=== PATIENT | male | born 1975 | race Caucasian/White ===

== ENCOUNTER 2018-10-24 11:20 | Outpatient (CLI) | payer MEDICARE, SELFPAY ==
[2018-10-24 11:29] VITALS: BMI 32.3
[2018-10-24 12:05] VITALS: BP 167/102; PULSE 110; RESP 20; TEMP 36.9; O2SAT 96
[2018-10-24 12:27] LABS: Basophils % 0.7 % (0.1-2.0); Eosinophils # 0.2 K/mm3 (0.0-0.4); Eosinophils % 3.3 % (0.1-12.0); Hematocrit 40.4 % (42.0-52.0); Hemoglobin 12.7 g/dL (14.1-18.0); Mean Corpuscular HGB Conc 31.5 g/dL (31.8-35.4); Mean Corpuscular Hemoglobin 28.9 pg (27.0-31.2); Mean Corpuscular Volume 91.5 fl (80-94); Mean Platelet Volume 7.9 fl (7.4-10.4); Monocytes # 0.4 K/mm3 (0.1-1.0); Monocytes % 6.5 % (1.7-9.3); Neutrophils # 3.4 K/mm3 (1.8-7.8); Neutrophils % 56.5 % (37.0-80.0); Platelet Count 188 K/mm3 (142-424); Red Blood Count 4.42 M/mm3 (4.60-6.20); Red Cell Distribution Width 21.4 % (11.5-17.5)
[2018-10-24 12:35] LABS: Chol/HDL Ratio 2.6 (1-3.5); Cholesterol 171 mg/dL (140-200); Ethyl Alcohol 226 mg/dL (0-99); HDL Cholesterol 66 mg/dL (27-67); LDL Cholesterol 90 mg/dL (0-130); Triglycerides 73 mg/dL (30-200); VLDL Cholesterol 15 mg/dL (0-40)
[2018-10-24 12:39] LABS: Alanine Aminotransferase 98 U/L (12-78); Albumin/Globulin Ratio 1.1 (1.1-1.8); Alkaline Phosphatase 119 U/L (46-116); Anion Gap 18.1 mEq/L (5-15); Aspartate Amino Transferase 81 U/L (15-37); Bilirubin,Total 0.5 mg/dL (0.2-1.0); Blood Urea Nitrogen 6 mg/dL (7-18); Calcium 8.9 mg/dL (8.5-10.1); Carbon Dioxide 28 mmol/L (21.0-32.0); Chloride 102 mmol/L (98-107); Creatinine Clearance Estimated 164 mL/min (50-200); Creatinine,Serum 0.88 mg/dL (0.70-1.30); Estimated Glomerular Filt Rate 94 ml/min (>60); GFR (African American) 114 ML/MIN (>60); Globulin 3.7 gm/dl (1.3-3.2); Glucose 93 mg/dL (74-106); Potassium 3.1 mmoL/L (3.5-5.1); Sodium 145 mmol/L (136-145); Total Protein,Serum 7.7 gm/dL (6.4-8.2)
[2018-10-24 14:05] VITALS: BP 152/85; PULSE 85; RESP 18
[2018-10-24 14:36] LABS: Hemoglobin A1C 5.3 % (0.0-7.0)
[2018-10-26 18:27] LABS: Folate 11.9 ng/mL (>3.0); Vitamin B12 640 pg/mL (232-1245); Vitamin D 25 Hydroxy 22.5 ng/mL (30.0-100.0)
== END 2018-10-24 14:05 | disposition home or self-care (01) ==
PROVIDERS: Physician Assistant; PCP Family Medicine; Visit Provider Family Medicine
DX: E86.0 Dehydration (principal); Z79.899 Other long term (current) drug therapy; R41.0 Disorientation, unspecified; I42.6 Alcoholic cardiomyopathy
CPT/HCPCS: 80053; 80061; 82607; 82652; 82746; 83036; 85025; 96360; 96361

== ENCOUNTER → 2019-01-30 14:19 | Outpatient (CLI) | payer MEDICARE, SELFPAY ==
--- NOTE | 2019-01-30 14:25 | XR_ITS ---
XR chest 2V HISTORY: ITS.REASON: PLEURITIC CP ORDERING PHYSICIAN: RUSSEL Edwards PATIENT AGE: 43 years COMPARISON: None FINDINGS: The cardiomediastinal silhouette and pulmonary vascularity are within normal limits. The lungs are clear without infiltrates, suspicious nodules, or pleural effusions. No acute bony abnormalities. IMPRESSION: Negative chest, no acute finding
--- NOTE | 2019-01-30 14:28 | XR_ITS ---
XR abdomen min 2V HISTORY: ITS.REASON: RT FLANK PAIN, CONSTIPATION ORDERING PHYSICIAN: RUSSEL Edwards PATIENT AGE: 43 years COMPARISON: None FINDINGS: Nonspecific nonobstructive bowel gas pattern. There are gas-filled loops of small and large bowel. Surgical clips are present in the epigastric region on the left and in the right upper. No acute bony findings. IMPRESSION: Nonspecific bowel gas pattern with nondistended gas-filled loops of small and large bowel otherwise negative
== END ==
PROVIDERS: PCP Family Medicine; Visit Provider Physician Assistant
DX: R10.9 Unspecified abdominal pain (principal); K59.00 Constipation, unspecified; R07.81 Pleurodynia
CPT/HCPCS: 71046; 74019

== ENCOUNTER → 2019-03-18 15:51 | Outpatient (CLI) | payer MEDICARE, BC, SELFPAY ==
[2019-03-18 18:07] LABS: Anion Gap 11.8 mEq/L (5-15); Blood Urea Nitrogen 9 mg/dL (7-18); Calcium 9.1 mg/dL (8.5-10.1); Carbon Dioxide 31 mmol/L (21.0-32.0); Chloride 105 mmol/L (98-107); Creatinine,Serum 0.98 mg/dL (0.70-1.30); Estimated Glomerular Filt Rate 83 ml/min (>60); GFR (African American) 101 ML/MIN (>60); Glucose 80 mg/dL (74-106); Potassium 3.8 mmoL/L (3.5-5.1); Sodium 144 mmol/L (136-145)
== END ==
PROVIDERS: Visit Provider Physician Assistant
DX: R60.9 Edema, unspecified (principal)
CPT/HCPCS: 36415; 80048

== ENCOUNTER → 2019-05-30 11:56 | Outpatient (CLI) | payer MEDICARE, SELFPAY ==
[2019-05-30 12:31] LABS: Basophils # 0.1 K/mm3 (0-0.2); Basophils % 0.7 % (0.1-2.0); Eosinophils # 0.2 K/mm3 (0.0-0.4); Eosinophils % 2.6 % (0.1-12.0); Hematocrit 45.7 % (42.0-52.0); Hemoglobin 14.8 g/dL (14.1-18.0); Lymphocytes # 1.9 K/mm3 (0.7-4.5); Mean Corpuscular HGB Conc 32.3 g/dL (31.8-35.4); Mean Corpuscular Hemoglobin 29.2 pg (27.0-31.2); Mean Corpuscular Volume 90.4 fl (80-94); Mean Platelet Volume 8.4 fl (7.4-10.4); Monocytes # 0.6 K/mm3 (0.1-1.0); Neutrophils # 5.8 K/mm3 (1.8-7.8); Neutrophils % 67.7 % (37.0-80.0); Platelet Count 264 K/mm3 (142-424); Red Blood Count 5.05 M/mm3 (4.60-6.20); Red Cell Distribution Width 15.9 % (11.5-17.5); White Blood Count 8.6 K/mm3 (4.8-10.8)
[2019-05-30 13:23] LABS: Hemoglobin A1C 5.8 % (0.0-7.0)
[2019-05-30 17:47] LABS: Alanine Aminotransferase 28 U/L (12-78); Albumin Level 3.7 gm/dL (3.4-5.0); Albumin/Globulin Ratio 1.2 (1.1-1.8); Alkaline Phosphatase 103 U/L (46-116); Anion Gap 10.6 mEq/L (5-15); Aspartate Amino Transferase 18 U/L (15-37); Bilirubin,Total 0.8 mg/dL (0.2-1.0); Blood Urea Nitrogen 15 mg/dL (7-18); Calcium 9.1 mg/dL (8.5-10.1); Carbon Dioxide 34 mmol/L (21.0-32.0); Chloride 105 mmol/L (98-107); Creatinine,Serum 1.23 mg/dL (0.70-1.30); Estimated Glomerular Filt Rate 64 ml/min (>60); GFR (African American) 77 ML/MIN (>60); Globulin 3.1 gm/dl (1.3-3.2); Glucose 110 mg/dL (74-106); Iron 60 ug/dl (28-170); Magnesium 2.2 mg/dL (1.4-2.2); Potassium 4.6 mmoL/L (3.5-5.1); Sodium 145 mmol/L (136-145); Thyroid Stimulating Hormone 3.22 uIU/ml (0.358-3.740); Total Protein,Serum 6.8 gm/dL (6.4-8.2)
[2019-06-02 09:27] LABS: Folate 6.5 ng/mL (>3.0); Prolactin 12.6 ng/mL (4.0-15.2); Vitamin B12 591 pg/mL (232-1245); Vitamin D 25 Hydroxy 24.6 ng/mL (30.0-100.0)
== END ==
PROVIDERS: Visit Provider Nurse Practitioner Family
DX: F10.120 Alcohol abuse with intoxication, uncomplicated (principal); E03.9 Hypothyroidism, unspecified; E55.9 Vitamin D deficiency, unspecified; D50.8 Other iron deficiency anemias; R60.9 Edema, unspecified; Z98.84 Bariatric surgery status; Z79.899 Other long term (current) drug therapy
CPT/HCPCS: 36415; 80053; 82607; 82652; 82746; 83036; 83540; 83735; 84146; 84443; 85025

== ENCOUNTER 2024-02-26 14:07 | Outpatient (CLI) | payer MEDICARE, SELFPAY ==
[2024-02-26 16:08] LABS: Thyroid Stimulating Hormone 5.05 uIU/mL (0.465-4.68)
[2024-02-26 16:12] LABS: Hemoglobin A1C 5.3 % (4.0-6.0)
[2024-02-26 16:44] LABS: Vitamin B12 943 pg/mL (239-931)
[2024-02-26 17:17] LABS: Folate > 20.00 ng/mL
== END 2024-02-26 23:59 | disposition home or self-care (01) ==
LOC: LAB 14:08
PROVIDERS: PCP Nurse Practitioner; Visit Provider Specialist
DX: R53.1 Weakness (principal); Z86.73 Personal history of transient ischemic attack (TIA), and cerebral infarction without residual deficits; E83.10 Disorder of iron metabolism, unspecified; Z87.898 Personal history of other specified conditions; R73.9 Hyperglycemia, unspecified; R53.83 Other fatigue; Z98.84 Bariatric surgery status; I47.19 Other supraventricular tachycardia
CPT/HCPCS: 36415; 82607; 82728; 82746; 83036; 84443; 93270; 93272

== ENCOUNTER 2024-03-11 08:05 | Outpatient (CLI) | payer MEDICARE, SELFPAY ==
--- NOTE | 2024-03-11 08:06 | MR_ITS ---
FINAL REPORT CLINICAL HISTORY: Left sided weakness FINDINGS: Multiplanar MR imaging of the brain was performed without and with contrast. Motion artifact is identified on many of the images. There is no evidence of intracranial hemorrhage or mass. No abnormal extra-axial fluid collection is seen. The ventricular size is within normal limits. There is no evidence of shift of the midline structures. The posterior fossa and brainstem have an unremarkable appearance. No area of abnormal restricted diffusion is identified. No abnormal contrast enhancement is seen. Normal major vessel vascular flow voids are noted. There is a retention cyst or polyp in both maxillary sinuses. IMPRESSION: No acute intracranial abnormality identified. Reviewed, Interpreted and Dictated by Luis Eduardo Qureshi III, MD Transcribed by Glenna Alegria Authenticated and [facility]
[2024-03-11] MEDS: GADOTERIDOL INJ 20ML SYRINGE 20 ML IV (08:52)
[2024-03-11] MEDS: SODIUM CHLORIDE 0.9% 10ML SYR (RAD ONLY) 10 ML IV (08:52)
== END 2024-03-11 23:59 | disposition home or self-care (01) ==
LOC: RAD 08:06
PROVIDERS: Visit Provider Specialist
DX: R53.1 Weakness (principal); R47.81 Slurred speech
CPT/HCPCS: 70553; A9576

== ENCOUNTER → 2024-04-06 07:34 | Outpatient (CLI) | payer MEDICARE, SELFPAY | LOC: SL 07:35 | PROVIDERS: Visit Provider Specialist | DX: G47.33 Obstructive sleep apnea (adult) (pediatric) (principal) | CPT/HCPCS: G0399 ==

== ENCOUNTER 2024-06-16 11:16 | Outpatient (CLI) | payer MEDICARE, SELFPAY ==
[2024-06-16 11:52] LABS: Basophils # 0.1 K/mm3 (0-0.2); Basophils % 0.8 % (0.1-2.0); Eosinophils # 0.2 K/mm3 (0.0-0.4); Hematocrit 37.2 % (42.0-52.0); Hemoglobin 12.6 g/dL (14.1-18.0); Lymphocytes # 1.5 K/mm3 (0.7-4.5); Lymphocytes % 20.2 % (10-50); Mean Corpuscular HGB Conc 33.9 g/dL (31.8-35.4); Mean Corpuscular Hemoglobin 30.3 pg (27.0-31.2); Mean Corpuscular Volume 89.5 fl (80-94); Mean Platelet Volume 9.3 fl (7.4-10.4); Monocytes # 0.5 K/mm3 (0.1-1.0); Monocytes % 6.6 % (1.7-9.3); Neutrophils # 5.3 K/mm3 (1.8-7.8); Neutrophils % 70.3 % (37.0-80.0); Platelet Count 171 K/mm3 (142-424); Red Blood Count 4.16 M/mm3 (4.60-6.20); Red Cell Distribution Width 16.4 % (11.5-17.5); White Blood Count 7.5 K/mm3 (4.8-10.8)
[2024-06-16 12:00] LABS: Activated Partial Thrombo Time 36.7 seconds (22.8-30.6); INR 1.02 (0.9-1.1); Prothrombin Time 11.4 seconds (10.1-12.5)
[2024-06-16 12:05] LABS: Creatinine,Urine Random 80 mg/dL (Not Estab.)
[2024-06-16 12:09] LABS: Microalbumin < 6.000 mg/L (0-16.7)
[2024-06-16 12:12] LABS: Alanine Aminotransferase 29 U/L (12-78); Albumin Level 3.8 g/dl (3.5-5.0); Alkaline Phosphatase 82 U/L (38-126); Anion Gap 8.9 mEq/L (5-15); Aspartate Amino Transferase 38 U/L (17-59); Bilirubin,Direct 0.1 mg/dl (0.0-0.4); Bilirubin,Indirect 0.9 mg/dL (0.0-0.9); Blood Urea Nitrogen 8 mg/dl (9-20); Calcium 8.7 mg/dl (8.4-10.2); Carbon Dioxide 29 mmol/L (22.0-30.0); Chloride 107 mmol/L (98-107); Chol/HDL Ratio 2.6 (1-3.5); Cholesterol 84 mg/dl (140-200); Estimated Glomerular Filt Rate 79 ml/min (>60); GFR (African American) 96 ML/MIN (>60); Glucose 88 mg/dl (74-100); HDL Cholesterol 32 mg/dl (40-60); Potassium 3.9 mmoL/L (3.5-5.1); Sodium 141 mmol/L (136-145); Total Protein,Serum 5.8 g/dl (6.3-8.2); Triglycerides 68 mg/dl (30-150); VLDL Cholesterol 14 mg/dL (0-40)
[2024-06-16 12:20] LABS: NT Pro Brain Natriuretic Pep. 124 pg/mL (0-125)
[2024-06-16 12:22] LABS: Direct LDL Cholesterol 45.26 mg/dL (100-129)
[2024-06-16 12:28] LABS: Free T4 (Free Thyroxine) 0.93 ng/dl (0.78-2.19)
[2024-06-16 12:42] LABS: Thyroid Stimulating Hormone 3.67 uIU/mL (0.465-4.68)
== END 2024-06-16 23:59 | disposition home or self-care (01) ==
LOC: LAB 11:17
PROVIDERS: PCP Nurse Practitioner Family; Visit Provider Internal Medicine
DX: I25.10 Atherosclerotic heart disease of native coronary artery without angina pectoris (principal); I95.1 Orthostatic hypotension; I87.2 Venous insufficiency (chronic) (peripheral); R60.9 Edema, unspecified; I49.9 Cardiac arrhythmia, unspecified; G25.81 Restless legs syndrome; Z87.898 Personal history of other specified conditions; R00.1 Bradycardia, unspecified; R53.1 Weakness; I50.9 Heart failure, unspecified
CPT/HCPCS: 36415; 80048; 80061; 80076; 82043; 82570; 83880; 84439; 84443; 85025; 85610; 85730

== ENCOUNTER 2024-06-26 07:16 | Outpatient (CLI) | payer MEDICARE, SELFPAY ==
--- NOTE | 2024-06-26 07:19 | CA_ITS ---
FINAL REPORT CLINICAL HISTORY: EDEMA,HTN,HLD,PT ON ASA COMPARISON: None FINDINGS: DUPLEX VENOUS SONOGRAPHY OF THE BILATERAL LOWER EXTREMITIES Multiple transverse and longitudinal scans were performed of the femoropopliteal deep venous systems, with augmentation and compression maneuvers. Normal phasic flow was noted in the visualized deep venous systems. No intraluminal increased echogenicity is noted to suggest thrombus. There is normal compression and augmentation of the venous structures. No abnormal venous collaterals are seen. IMPRESSION: No evidence of deep venous thrombosis of the bilateral lower extremities. Reviewed, Interpreted and Dictated by Chrissie Estrada MD Transcribed by Milena Ramirez Authenticated and [facility]
--- NOTE | 2024-06-26 07:19 | CA_ITS ---
APPROVED REPORT EXAM: Comprehensive 2D, Doppler, and color-flow Echocardiogram Management Professionals: Marcie Quijano RVT Ht: 6 ft 0 in Wt: 223lbs BSA: 2.23 BP: 131/84 mmHg Indications: FATIGUE,EDEMA,CAD,JUDY,CHF,DM,HTN,HLD,SMOKER,BRADYCARDIA 2D Dimensions LA Volume 58.00 mL LA Volume Index 26.01 mL/m2 (M/F) 16-34 M-Mode Dimensions RVDd 2.37 cm (0.9-2.6) LA Diam 3.65 cm (1.9-4.0) LVDd 4.58 cm (3.5-5.7) LVDs 2.93 cm (3.5-5.7) IVSd 1.00 cm (0.6-1.1) PWd 0.72 cm (0.6-1.1) EF (Teich) 65.70% FS 36.00% EDV (Teich) 96.30 mL TAPSE 3.15 (<1.7) ESV (Teich) 33.00 mL LV Diastology E Decel Time 193 (160-240 msec) E/A Ratio 1.7 Aortic Valve GEORGE Index 1.57 cm2/m2 AoV Peak Martín. 129.0 (50-130 cm/s) AO Peak GR. 6.70 mmHg AO Mean GR. 3.10 (<5 mmHg) AO VTI 28.3 (18-25 cm) GEORGE (VTI) 3.60 (2.5-4.5 cm2) Mitral Valve MV E Max Martín. 106.0 (40-130 cm/s) MV A Velocity 64.0 (40-130 cm/s) E/A Ratio 1.66 MV PHT 57.0 ms Pulmonary Valve PV Peak Velocity 80.0 (50-150 cm/s) Tricuspid Valve TR P. Velocity 290.00 cm/s RAP Estimate 10.00 mmHg RVSP 43.60 mmHg Left Ventricle The left ventricle is normal size. The left ventricular systolic function is normal. The left ventricular ejection fraction is within the normal range. There is normal left ventricular wall thickness. There is normal LV segmental wall motion. The left ventricular diastolic function is normal. LVEF is 55%. Right Ventricle The right ventricle is mildly dilated. The right ventricular systolic function is normal. Atria The left atrium size is normal. The right atrium size is normal. There is no Doppler evidence of interatrial shunt. Aortic Valve The aortic valve opens well. There is no aortic valvular stenosis. No aortic regurgitation is present. Mitral Valve The mitral valve is normal in structure. No evidence of mitral valve stenosis. There is no mitral valve regurgitation noted. Tricuspid Valve Tricuspid valve is grossly normal in structure and function. Mild tricuspid regurgitation. RVSP is 25-30 mmHg. Pulmonic Valve The pulmonary valve is normal in structure. Trace pulmonic regurgitation. Great Vessels The aortic root is normal in size. The ascending aorta is normal in size. IVC is normal in size and collapses >50% with inspiration. Pericardium There is no pericardial effusion. Other Information Study Quality: Fair Conclusion Normal biventricular systolic function. Mild RV dilation. Mild TR. Electronically signed by : Cydney Teresa MD 07/05/2024 23:16:07
--- NOTE | 2024-06-26 07:21 | US_ITS ---
FINAL REPORT TECHNIQUE: Sonographic images of the right upper quadrant were obtained. CLINICAL HISTORY: alcoholism COMPARISON: None FINDINGS: PANCREAS: Obscured. LIVER: Homogeneous. No focal hepatic lesion. No intrahepatic biliary ductal dilatation. GALLBLADDER: Absent. COMMON DUCT: 6 mm. Normal for age. RIGHT KIDNEY: The right kidney measures 12.1 cm. There is no hydronephrosis, mass, or stone. FREE FLUID: None. IMPRESSION: Cholecystectomy Reviewed, Interpreted and Dictated by Chrissie Estrada MD Transcribed by Esther Sung Authenticated and [facility]
== END 2024-06-26 23:59 | disposition home or self-care (01) ==
LOC: RAD 07:17
PROVIDERS: PCP Nurse Practitioner Family; Visit Provider Internal Medicine
DX: I25.10 Atherosclerotic heart disease of native coronary artery without angina pectoris (principal); I87.2 Venous insufficiency (chronic) (peripheral); K95.89 Other complications of other bariatric procedure; D50.8 Other iron deficiency anemias; R60.9 Edema, unspecified; I49.9 Cardiac arrhythmia, unspecified; Z87.898 Personal history of other specified conditions; R00.1 Bradycardia, unspecified; F10.21 Alcohol dependence, in remission
CPT/HCPCS: 76705; 93306; 93970

== ENCOUNTER 2024-07-16 13:39 | Outpatient (CLI) | payer MEDICARE, SELFPAY ==
[2024-07-16 14:26] LABS: Basophils % 0.5 % (0.1-2.0); Eosinophils % 1.1 % (0.1-12.0); Hematocrit 39.8 % (42.0-52.0); Hemoglobin 13.5 g/dL (14.1-18.0); Lymphocytes # 2.1 K/mm3 (0.7-4.5); Lymphocytes % 20.9 % (10-50); Mean Corpuscular HGB Conc 33.9 g/dL (31.8-35.4); Mean Corpuscular Hemoglobin 29.7 pg (27.0-31.2); Mean Corpuscular Volume 87.5 fl (80-94); Mean Platelet Volume 11.9 fl (7.4-10.4); Monocytes % 6.4 % (1.7-9.3); Neutrophils # 7.1 K/mm3 (1.8-7.8); Neutrophils % 70.9 % (37.0-80.0); Platelet Count 233 K/mm3 (142-424); Red Blood Count 4.55 M/mm3 (4.60-6.20); Red Cell Distribution Width 15.9 % (11.5-17.5)
[2024-07-16 14:27] LABS: Basophils # 0.1 K/mm3 (0-0.2); Eosinophils # 0.1 K/mm3 (0.0-0.4); Monocytes # 0.6 K/mm3 (0.1-1.0)
[2024-07-16 15:11] LABS: Iron 70 ug/dL (49-181)
[2024-07-16 15:19] LABS: Total Iron Binding Capacity 441 ug/dL (261-462)
[2024-07-16 15:46] LABS: Ferritin 7.22 ng/ml (17.9-464)
== END 2024-07-16 23:59 | disposition home or self-care (01) ==
LOC: LAB 13:40
PROVIDERS: PCP Nurse Practitioner Family; Visit Provider Internal Medicine Medical Oncology
DX: K95.89 Other complications of other bariatric procedure (principal); D50.8 Other iron deficiency anemias
CPT/HCPCS: 36415; 82728; 83540; 83550; 85025

== ENCOUNTER 2024-08-14 09:33 | Outpatient (CLI) | payer MEDICARE, SELFPAY ==
[2024-08-14 09:54] LABS: Basophils % 0.3 % (0.1-2.0); Eosinophils # 0.1 K/mm3 (0.0-0.4); Eosinophils % 0.8 % (0.1-12.0); Hematocrit 43.3 % (42.0-52.0); Hemoglobin 14.7 g/dL (14.1-18.0); Lymphocytes % 14.5 % (10-50); Mean Corpuscular HGB Conc 33.9 g/dL (31.8-35.4); Mean Corpuscular Hemoglobin 29.2 pg (27.0-31.2); Mean Corpuscular Volume 85.9 fl (80-94); Mean Platelet Volume 10.6 fl (7.4-10.4); Monocytes # 0.9 K/mm3 (0.1-1.0); Monocytes % 6.6 % (1.7-9.3); Neutrophils # 10.5 K/mm3 (1.8-7.8); Neutrophils % 77.6 % (37.0-80.0); Platelet Count 229 K/mm3 (142-424); Red Blood Count 5.04 M/mm3 (4.60-6.20); Red Cell Distribution Width 15.9 % (11.5-17.5); White Blood Count 13.5 K/mm3 (4.8-10.8)
[2024-08-14 10:15] LABS: Chloride 96 mmol/L (98-107)
[2024-08-14 10:16] LABS: Potassium 3.5 mmoL/L (3.5-5.1); Sodium 136 mmol/L (136-145)
[2024-08-14 10:17] LABS: Iron 70 ug/dL (49-181)
[2024-08-14 10:18] LABS: Anion Gap 11.5 mEq/L (5-15); Bilirubin,Unconjugated 1.6 mg/dL (0.0-1.1); Blood Urea Nitrogen 10 mg/dl (9-20); Carbon Dioxide 32 mmol/L (22.0-30.0); Estimated Glomerular Filt Rate 54 ml/min (>60); GFR (African American) 65 ML/MIN (>60); Total Protein,Serum 7.4 g/dl (6.3-8.2)
[2024-08-14 10:19] LABS: Alanine Aminotransferase 34 U/L (12-78); Alkaline Phosphatase 101 U/L (38-126); Aspartate Amino Transferase 55 U/L (17-59); Bilirubin,Indirect 1.5 mg/dL (0.0-0.9); Bilirubin,Total 1.5 mg/dl (0.2-1.3); Calcium 10.1 mg/dl (8.4-10.2); Chol/HDL Ratio 3.2 (1-3.5); Cholesterol 115 mg/dl (140-200); Glucose 91 mg/dl (74-100); HDL Cholesterol 36 mg/dl (40-60); Triglycerides 95 mg/dl (30-150); VLDL Cholesterol 19 mg/dL (0-40)
[2024-08-14 10:27] LABS: Total Iron Binding Capacity 468 ug/dL (261-462)
[2024-08-14 10:30] LABS: Direct LDL Cholesterol 64.86 mg/dL (100-129)
[2024-08-14 10:49] LABS: Thyroid Stimulating Hormone 4.46 uIU/mL (0.465-4.68)
[2024-08-14 10:53] LABS: Ferritin 10.2 ng/ml (17.9-464)
== END 2024-08-14 23:59 | disposition home or self-care (01) ==
PROVIDERS: Internal Medicine Medical Oncology; PCP Nurse Practitioner Family; Visit Provider Internal Medicine
DX: K95.89 Other complications of other bariatric procedure (principal); D50.8 Other iron deficiency anemias; D64.9 Anemia, unspecified; I50.30 Unspecified diastolic (congestive) heart failure; I25.10 Atherosclerotic heart disease of native coronary artery without angina pectoris; I87.2 Venous insufficiency (chronic) (peripheral); R60.9 Edema, unspecified; F10.21 Alcohol dependence, in remission; G25.81 Restless legs syndrome; Z87.898 Personal history of other specified conditions; Z72.0 Tobacco use
CPT/HCPCS: 36415; 80048; 80061; 80076; 82728; 83540; 83550; 83735; 84439; 84443; 85025

== ENCOUNTER 2024-08-17 08:52 | Outpatient (CLI) | payer MEDICARE, SELFPAY ==
[2024-08-17] MEDS: SODIUM CHLORIDE 0.9% 50ML BAG 50 ML IV (09:10)
[2024-08-17] MEDS: ferumoxytoL 510 MG in 0.9 % SODIUM CHLORIDE 50 ML 268 MG IV (09:10)
[2024-08-17 09:15] VITALS: BP 98/46; PULSE 86; RESP 18; TEMP 36.7; O2SAT 98
[2024-08-17 09:30] VITALS: BP 100/51; PULSE 81
== END 2024-08-17 09:40 | disposition home or self-care (01) ==
LOC: INF 08:53
PROVIDERS: PCP Nurse Practitioner Family; Visit Provider Internal Medicine
DX: D50.8 Other iron deficiency anemias (principal)
CPT/HCPCS: 96374; Q0138

== ENCOUNTER 2024-08-21 08:22 | Outpatient (CLI) | payer MEDICARE, SELFPAY ==
[2024-08-21] MEDS: ferumoxytoL 510 MG in 0.9 % SODIUM CHLORIDE 50 ML 268 MG IV (08:36)
[2024-08-21] MEDS: SODIUM CHLORIDE 0.9% 10ML FLUSH SYRINGE 10 ML IV (08:37)
[2024-08-21] MEDS: SODIUM CHLORIDE 0.9% 50ML BAG 50 ML IV (08:37)
[2024-08-21 08:45] VITALS: BP 117/72; PULSE 67; RESP 18; TEMP 36.5; O2SAT 99
[2024-08-21 09:00] VITALS: BP 109/61; PULSE 62; RESP 17
== END 2024-08-21 09:10 | disposition home or self-care (01) ==
LOC: INF 08:23
PROVIDERS: PCP Nurse Practitioner Family; Visit Provider Internal Medicine
DX: D50.9 Iron deficiency anemia, unspecified (principal)
CPT/HCPCS: 96374; Q0138

== ENCOUNTER 2024-08-25 08:22 | Outpatient (CLI) | payer MEDICARE, SELFPAY ==
[2024-08-25 08:37] VITALS: BP 123/67; PULSE 68; RESP 16; TEMP 36.5; O2SAT 97
[2024-08-25] MEDS: SODIUM CHLORIDE 0.9% 10ML FLUSH SYRINGE 10 ML IV (08:37)
[2024-08-25] MEDS: ferumoxytoL 510 MG in 0.9 % SODIUM CHLORIDE 50 ML 268 MG IV (08:37)
[2024-08-25] MEDS: SODIUM CHLORIDE 0.9% 50ML BAG 50 ML IV (08:37)
[2024-08-25 09:05] VITALS: BP 116/77; PULSE 65; RESP 16; TEMP 36.5; O2SAT 98
== END 2024-08-25 09:10 | disposition home or self-care (01) ==
LOC: INF 08:23
PROVIDERS: PCP Nurse Practitioner Family; Visit Provider Internal Medicine
DX: D50.9 Iron deficiency anemia, unspecified (principal)
CPT/HCPCS: 96365; Q0138

== ENCOUNTER 2024-08-26 08:16 | Outpatient (CLI) | payer MEDICARE, SELFPAY ==
[2024-08-26] MEDS: ferumoxytoL 510 MG in 0.9 % SODIUM CHLORIDE 50 ML 268 MG IV (08:34)
[2024-08-26] MEDS: SODIUM CHLORIDE 0.9% 50ML BAG 50 ML IV (08:34)
[2024-08-26 08:45] VITALS: BP 106/62; PULSE 78; RESP 18; TEMP 36.7; O2SAT 98
[2024-08-26 09:10] VITALS: BP 97/48; PULSE 82
== END 2024-08-26 09:10 | disposition home or self-care (01) ==
LOC: INF 08:17
PROVIDERS: PCP Nurse Practitioner Family; Visit Provider Internal Medicine
DX: D50.9 Iron deficiency anemia, unspecified (principal)
CPT/HCPCS: 96365; 96374; Q0138

== ENCOUNTER 2024-09-03 22:05 | Emergency (ER) | payer MEDICARE, SELFPAY ==
[2024-09-03 22:18] VITALS: BP 113/79; PULSE 96; RESP 20; TEMP 36.9; O2SAT 98; BMI 29.8
[2024-09-03 22:33] LABS: Basophils # 0.1 K/mm3 (0-0.2); Basophils % 0.5 % (0.1-2.0); Eosinophils # 0.1 K/mm3 (0.0-0.4); Eosinophils % 1.2 % (0.1-12.0); Hemoglobin 14.9 g/dL (14.1-18.0); Lymphocytes # 2.6 K/mm3 (0.7-4.5); Lymphocytes % 26.7 % (10-50); Mean Corpuscular HGB Conc 33.9 g/dL (31.8-35.4); Mean Corpuscular Hemoglobin 30.7 pg (27.0-31.2); Mean Corpuscular Volume 90.5 fl (80-94); Mean Platelet Volume 10.5 fl (7.4-10.4); Monocytes # 0.6 K/mm3 (0.1-1.0); Monocytes % 6.5 % (1.7-9.3); Neutrophils # 6.3 K/mm3 (1.8-7.8); Neutrophils % 64.8 % (37.0-80.0); Platelet Count 202 K/mm3 (142-424); Red Blood Count 4.86 M/mm3 (4.60-6.20); Red Cell Distribution Width 18.6 % (11.5-17.5); White Blood Count 9.7 K/mm3 (4.8-10.8)
[2024-09-03 22:40] LABS: Albumin Level 4.5 g/dl (3.5-5.0); Chloride 97 mmol/L (98-107); Potassium 3.4 mmoL/L (3.5-5.1); Sodium 139 mmol/L (136-145)
[2024-09-03 22:42] LABS: Blood Urea Nitrogen 11 mg/dl (9-20); Creatinine Clearance Estimated 81 mL/min (50-200); Estimated Glomerular Filt Rate 64 ml/min (>60); GFR (African American) 78 ML/MIN (>60)
[2024-09-03 22:43] LABS: Alanine Aminotransferase 36 U/L (12-78); Alkaline Phosphatase 87 U/L (38-126); Anion Gap 9.4 mEq/L (5-15); Aspartate Amino Transferase 53 U/L (17-59); Bilirubin,Total 0.5 mg/dl (0.2-1.3); Calcium 9.1 mg/dl (8.4-10.2); Carbon Dioxide 36 mmol/L (22.0-30.0); Globulin 2.3 g/dL (1.3-3.2); Glucose 90 mg/dl (74-100); Total Protein,Serum 6.8 g/dl (6.3-8.2)
[2024-09-03 22:44] LABS: Lactic Acid 1.3 mmol/L (0.7-2.1)
[2024-09-03] MEDS: LACTATED RINGERS 1000ML 500 ML 999 ML IV (22:52)
[2024-09-03 23:11] LABS: C-Reactive Protein 0.9 mg/L (0-4)
[2024-09-03 23:19] LABS: Erythrocyte Sedimentation Rate 2 mm/hr (0-15)
[2024-09-03 23:25] LABS: Procalcitonin 0.054 ng/mL (0.0-2.0)
--- NOTE | 2024-09-03 23:51 | ED_ITS ---
Discharge Plan Disposition Patient Disposition: Home, Self-Care Condition: Good Prescriptions Prescriptions: New acyclovir 800 mg tablet 800 mg PO Q4H 5 Days Qty: 30 0RF Rx Instructions: while awake; give 5 doses in 24 hours No Action rosuvastatin 10 mg tablet 10 mg PO DAILY Qty: 90 3RF (DME) OneTouch Ultra Test Strip See Rx Instructions .ROUTE .MEDSUPPLY Qty: 10 Patient Comments: USE 1 STRIP TO CHECK GLUCOSE THREE TIMES DAILY Rx Instructions: As directed (DME) Dexcom G6 Sensor Device See Rx Instructions .ROUTE .MEDSUPPLY Qty: 1 Rx Instructions: As directed (DME) Dexcom G6 Weaving Machine Operator Misc See Rx Instructions .ROUTE .MEDSUPPLY Qty: 1 Patient Comments: USE DIRECTED Rx Instructions: As directed midodrine 5 mg tablet 5 mg PO TID Qty: 90 1RF Rx Instructions: do not give last dose of day after 6PM or within 4 hrs of bedtime (DME) Dexcom G6 Transmitter Device See Rx Instructions .ROUTE .MEDSUPPLY Qty: 1 Patient Comments: USE DIRECTED Rx Instructions: As directed Linzess 72 mcg capsule 72 mcg PO DAILY dapagliflozin propanediol [Farxiga] 10 mg tablet 10 mg PO DAILY Qty: 30 2RF spironolactone 25 mg tablet 12.5 mg PO DAILY Qty: 30 2RF guanfacine 1 mg tablet extended release 24 hr 1 mg PO DAILY Patient Comments: TAKE 1 TABLET BY MOUTH ONCE DAILY gabapentin 400 mg capsule 400 mg PO DAILY albuterol sulfate 90 mcg/actuation HFA aerosol inhaler 2 puff inhalation Q4H PRN (Reason: Dyspnea) Patient Comments: INHALE 2 PUFFS BY MOUTH EVERY 4 HOURS NEEDED lamotrigine 200 mg tablet 200 mg PO DAILY Patient Comments: TAKE 1 TABLET BY MOUTH ONCE DAILY folic acid 400 mcg tablet 400 mcg PO DAILY Patient Comments: TAKE 1 TABLET BY MOUTH ONCE DAILY venlafaxine 37.5 mg capsule,extended release 24hr 37.5 mg PO DAILY Patient Comments: TAKE 1 CAPSULE BY MOUTH ONCE DAILY WITH FOOD omeprazole 20 mg capsule,delayed release(DR/EC) 20 mg PO BID Patient Comments: TAKE 1 CAPSULE BY MOUTH TWICE DAILY pramipexole 0.5 mg tablet 0.5 mg PO HS Patient Comments: TAKE 1 TABLET BY MOUTH ONCE DAILY AT BEDTIME trazodone 100 mg tablet 100 mg PO DAILY Patient Comments: TAKE 1 TABLET BY MOUTH ONCE DAILY potassium chloride 10 mEq tablet extended release 10 meq PO DAILY Patient Comments: TAKE 1 TABLET BY MOUTH ONCE DAILY WITH FOOD methylphenidate HCl [Concerta] 36 mg tablet extended release 24hr 36 mg PO DAILY All Day Allergy (cetirizine) 10 mg capsule 10 mg PO DAILY PRN (Reason: allergies ) aspirin 81 mg capsule 81 mg PO DAILY tamsulosin 0.4 mg capsule 0.4 mg PO QHS Patient Comments: TAKE 1 CAPSULE BY MOUTH ONCE DAILY 30 MINUTES FOLLOWING THE SAME MEAL EACH DAY Vraylar 3 mg capsule 4.5 mg PO DAILY Austedo XR 24 mg tablet extended release 24 hr PO bumetanide 1 mg tablet 2 mg PO DAILY Qty: 60 5RF Referrals Follow up/Referrals: Funmilayo Ayala APRN [Primary Care Provider] - See instructions Activity Restrictions/Add. Instructions Additional Instructions/Restrictions: You were evaluated in the emergency department today. At this time, your labs are reassuring against significant bacterial infection. It is possible this could all be related to shingles, so I recommend picking up your prescription for acyclovir and is taking as prescribed. Please also take the antibiotic prescribed by your primary care provider just in case. Take Tylenol and ibuprofen every 4-6 hours as needed for pain. Return to the emergency department right away for new or worsening symptoms. Clinical Impressions Clinical Impression: Shingles rash Stand Alone Forms Stand Alone Forms: Work/School Release Instructions Patient Instructions: DI for Cellulitis -- Adult, DI for Shingles Print Language Print Language: Cameroonian Discharge ED Provider: Funmilayo Orozco General Adult HPI General Chief complaint: Skin/Abscess/Foreign Body Stated complaint: red streak from dermatitis, Time Seen by Provider: 09/03/24 22:43 Mode of Arrival: Ambulatory Source of Information: Patient Limitations: No Limitations Description of Symptoms (Recalled from ER Triage Doc. by RN): Pt states he has dermatitis on right arm but noticed red streak up arm today History of Present Illness HPI narrative: This patient is a 49-year-old male with a history of JUDY, COPD, CHF, venous insufficiency, CAD, prior bariatric surgery presenting to the emergency department for evaluation with concern for painful lesions to his right hand and streaking up his right arm. Patient notes that he has had the rash on his hands but just noticed the streaking on his arm today. He notes that he had dermatitis of his hand in the past, but never had the arm issue. He denies any fevers, chills, chest pain, shortness of breath, abdominal pain, nausea, vomiting, changes in bowel movements, or other concerns. Related Data Home Medications ?Medication ?Instructions ?Recorded ?Confirmed albuterol sulfate 90 mcg/actuation 2 puff inhalation Q4H PRN Dyspnea 02/26/24 08/11/24 aerosol inhaler aspirin 81 mg capsule 81 mg PO DAILY 02/26/24 08/11/24 cetirizine 10 mg capsule (All Day 10 mg PO DAILY PRN allergies 02/26/24 08/11/24 Allergy (cetirizine)) folic acid 400 mcg tablet 400 mcg PO DAILY 02/26/24 08/11/24 gabapentin 400 mg capsule 400 mg PO DAILY 02/26/24 08/11/24 guanfacine 1 mg tablet,extended 1 mg PO DAILY 02/26/24 08/11/24 release 24 hr lamotrigine 200 mg tablet 200 mg PO DAILY 02/26/24 08/11/24 methylphenidate HCl 36 mg 36 mg PO DAILY 02/26/24 08/11/24 tablet,extended release 24 hr (Concerta) omeprazole 20 mg capsule,delayed 20 mg PO BID 02/26/24 08/11/24 release potassium chloride 10 mEq 10 meq PO DAILY 02/26/24 08/11/24 tablet,extended release pramipexole 0.5 mg tablet 0.5 mg PO HS 02/26/24 08/11/24 tamsulosin 0.4 mg capsule 0.4 mg PO QHS 02/26/24 08/11/24 trazodone 100 mg tablet 100 mg PO DAILY 02/26/24 08/11/24 venlafaxine 37.5 mg 37.5 mg PO DAILY 02/26/24 08/25/24 capsule,extended release 24 hr cariprazine 3 mg capsule (Vraylar) 4.5 mg PO DAILY 04/20/24 08/11/24 blood sugar diagnostic (OneTouch #10 ea 06/16/24 08/11/24 Ultra Test strips) blood-glucose meter,continuous #1 ea 06/16/24 08/11/24 (CBA PHARMA G6 Weaving Machine Operator) blood-glucose sensor (IEVcom G6 #1 ea 06/16/24 08/11/24 Sensor device) deutetrabenazine 24 mg mg PO 07/16/24 08/11/24 tablet,extended release 24 hr (Austedo XR) blood-glucose transmitter (Dexcom #1 ea 08/11/24 08/11/24 G6 Transmitter device) linaclotide 72 mcg capsule 72 mcg PO DAILY 08/11/24 08/11/24 (Linzess) Previous Rx's ?Medication ?Instructions ?Recorded rosuvastatin 10 mg tablet 10 mg PO DAILY #90 tabs 05/11/24 midodrine 5 mg tablet 5 mg PO TID #90 tabs 07/07/24 bumetanide 1 mg tablet 2 mg (2 x 1 mg) PO DAILY #60 tabs 07/13/24 dapagliflozin propanediol 10 mg 10 mg PO DAILY #30 tabs 08/11/24 tablet (Farxiga) spironolactone 25 mg tablet 12.5 mg (1/2 x 25 mg) PO DAILY #30 08/11/24 tabs acyclovir 800 mg tablet 800 mg PO Q4H 5 days #30 tabs 09/04/24 Allergies Allergy/AdvReac Type Severity Reaction Status Date / Time Penicillins Allergy Intermediate Rash Verified 08/25/24 08:51 [facility] Disclaimer: The information contained in this section may have been updated after the patient was seen, as this information can be updated by other users. Medical History COPD (chronic obstructive pulmonary disease) (HFpEF) heart failure with preserved ejection fraction Iron deficiency anemia following bariatric surgery Coronary artery disease JUDY (obstructive sleep apnea) History of arthritis History of TIA (transient ischemic attack) History of coronary artery disease History of CHF (congestive heart failure) History of diabetes mellitus History of hyperlipidemia History of hypertension Surgical History History of cholecystectomy History of gastric bypass Family History Other Coronary artery disease Diabetes Hypertension Social History Smoking Status: Current every day smoker tobacco type: cigarettes packs per day: 1 alcohol intake: former year quit: 2020 substance use type: denies use current occupational status: disabled Travel in the last 8 weeks: None household members: spouse housing: house marital status: number of children: 2 number of grandchildren: 5 caffeine: Yes Have you lived/traveled outside [place] in past 30 days?: No Contact w/someone who lives/traveled outside US past 30 days?: No Exposure to someone with infectious disease in past 14 days?: No Do you have a fever (greater than 100.4 F or 38 C)?: No Have you tested positive for COVID-19: No Exposed to someone with COVID-19 in past 14 days?: No Do you have a sore throat?: No Do you have a cough?: No Do you have any weakness?: No Do you have any diarrhea?: No Are you experiencing any unusual bleeding?: No Do you have any muscle aches/pain?: No Do you have any abdominal pain?: No Are you experiencing loss of taste or smell?: No Other Medical History Have you received the Pneumonia Vaccine: Yes ROS Obtained: Yes All systems reviewed & no additional complaints except as documented Physical Exam General General appearance: alert and in no apparent distress Head Head exam: atraumatic and normocephalic Eye Eye exam: Present normal appearance, PERRL and EOMI ENT ENT exam: Present normal exam, normal oropharynx, mucous membranes moist and normal external ear exam Neck Neck exam: Present normal inspection, full ROM and trachea midline; Absent tenderness Chest Chest inspection: Present normal inspection and symmetric chest wall rise; Absent tenderness Respiratory Respiratory exam: Present normal lung sounds bilaterally; Absent respiratory distress, wheezes, stridor or accessory muscle use Cardiovascular Cardiovascular exam: Present regular rate and normal rhythm Abdominal Exam Abdominal exam: Present soft; Absent distention, tenderness or guarding Extremities Exam Extremities exam: Present full ROM, tenderness and normal capillary refill; Absent edema Expanded Upper Extremity Exam Right: Hand L/R front image: 2 1. other (Vesicular rash) L/R Arms Bottom View: 2 1. Red streak up the arm Comment: All compartment soft, neurovascularly intact distally. No significant swelling, isolated skin color change Back Exam Back exam: Present normal inspection and full ROM; Absent tenderness Neurological Exam Neurological exam: Present alert, oriented X3, CN II-XII intact and normal gait; Absent motor sensory deficit Psychiatric Psychiatric exam: Present normal affect and normal mood Skin Skin exam: Present warm and dry Medical Decision Making Medical Records Medical records reviewed: Yes I reviewed the patient's medical records. Screening: Per USPSTF and CDC recommendations, given the prevalence of disease in our region, it is our hospital?s policy to screen for HIV and viral Hepatitis for all patients aged 18 and over and those with ongoing risk factors. Buck Inquiry Pt receiving controlled substance: No Vital Signs: 09/03/24 22:18 Temperature 98.5 F Temperature Source Oral Pulse Rate [Left Brachial] 96 H Respiratory Rate 20 Blood Pressure [Left Arm] 113/79 Blood Pressure Mean [Left Arm] 90 Blood Pressure Source [Left Arm] Automatic Cuff Blood Pressure Position [Left Arm] Sitting 02 Sat by Pulse Oximetry 98 Oxygen Delivery Method Room Air Lab Data Lab results reviewed: Yes I reviewed the patient's lab results. Lab Results 09/03/24 22:20: WBC 9.7, RBC 4.86, Hgb 14.9, Hct 44.0, MCV 90.5, MCH 30.7, MCHC 33.9, RDW 18.6 H, Plt Count 202, MPV 10.5 H, Neut % (Auto) 64.8, Lymph % (Auto) 26.7, [place] % (Auto) 6.5, Eos % (Auto) 1.2, Baso % (Auto) 0.5, Neut # (Auto) 6.3, Lymph # (Auto) 2.6, [place] # (Auto) 0.6, Eos # (Auto) 0.1, Baso # (Auto) 0.1, ESR 2, Sodium 139, Potassium 3.4 L, Chloride 97 L, Carbon Dioxide 36 H, Anion Gap 9.4, BUN 11, Creatinine 1.20, Estimated Creat Clear 81, Estimated GFR 64, Est GFR ( Amer) 78, Glucose 90, Lactate 1.3, Calcium 9.1, Total Bilirubin 0.5, AST 53, ALT 36, Alkaline Phosphatase 87, C-Reactive Protein 0.9, Total Protein 6.8, Albumin 4.5, Globulin 2.3, Albumin/Globulin Ratio 2.0 H, Procalcitonin 0.054, HCV Ab ELI w/Rflx PCR Qn Negative, HIV Ag/Ab Combo Qual Negative 09/03/24 22:20 09/03/24 22:20 Orders (Tests/Meds): ED MEDICATIONS Generic Name Dose Route Start Last Admin Trade Name Olga PRN Reason Stop Dose Admin Miscellaneous 1 each 09/03/24 23:00 09/03/24 23:57 Vancomycin Consult Request NOTAPPLIC 10/03/24 22:59 Not Given [facility] Discontinued Medications Generic Name Dose Route Start Last Admin Trade Name Olga PRN Reason Stop Dose Admin Acyclovir 800 mg 09/03/24 23:50 09/04/24 00:01 Acyclovir 400mg Tab PO 09/03/24 23:51 800 mg ONCE ONE Administration Gabapentin 300 mg 09/04/24 00:32 09/04/24 00:56 Gabapentin 300mg Capsule PO 09/04/24 00:33 300 mg ONCE ONE Administration Lactated Ringer's 500 mls @ 999 mls/hr 09/03/24 22:34 09/03/24 22:52 Lactated Ringer's 1000 Ml Bag IV 09/03/24 23:04 999 mls/hr .Q31M ONE Administration Ketorolac Tromethamine 15 mg 09/03/24 23:51 09/04/24 00:01 Ketorolac 30mg/Ml Vial IV 09/03/24 23:52 15 mg ONCE ONE Administration Trimethoprim/Sulfamethoxazole 1 each 09/03/24 23:50 09/04/24 00:01 Sulfa/Trimethoprim 1 Tablet PO 09/03/24 23:51 1 each ONCE ONE Administration ORDERS Category Date Time Status CRP [C-Reactive Protein] Stat Lab 09/03/24 22:20 Completed Complete Blood Count Auto Diff Stat Lab 09/03/24 22:20 Completed Comprehensive Metabolic Panel Stat Lab 09/03/24 22:20 Completed ESR [Erythrocyte Sedimentation Rate] Stat Lab 09/03/24 22:20 Completed HIV Combo Routine Lab 09/03/24 22:20 Completed HSV 1/2 PCR, (BLOOD/SWAB) Routine Lab 09/03/24 22:20 Received Hepatitis C Ab Qual. W/ RFX Routine Lab 09/03/24 22:20 Completed Lactic Acid Stat Lab 09/03/24 22:20 Completed Procalcitonin Stat Lab 09/03/24 22:20 Completed Blood Culture Stat Micro 09/03/24 23:11 Received Medical Decision Narrative: In summary, this patient is a 49-year-old male presenting to the Emergency Department for evaluation of rash to his right hand and red streaking up his right arm. Differential diagnoses considered include but are not limited to cellulitis, lymphangitis, herpes zoster, HSV. Ruling out the most morbid conditions drove assessment. It should be noted patient's history includes since a cardiovascular history which or may not be at goal therapy. This complicates all aspects of care by increasing patient's risk for morbidity. I reviewed patient's past medical records and noted previous evaluations, iron infusions for iron deficiency anemia. On exam, the patient is sitting upright in no acute distress. He is nontoxic- appearing, afebrile, vitals are reassuring on cardiac telemetry. He has a vesicular rash to his right thumb with a red streak going up his arm. No significant swelling, no palpable crepitus, no appreciable abscess. He is neurovascularly intact distally. He does have a history of having shingles in the past, and I feel this could be consistent with shingles rash, however cannot exclude cellulitis/lymphangitis with the streaking up his arm. Workup included CBC, CMP, CRP, ESR, Pro-Kelvin, lactic acid, blood cultures. On reassessment, the patient is resting comfortably. Labs demonstrated normal white blood cell count, normal CRP, normal procalcitonin. This is a suggestive against a severe bacterial infection. It is possible this could all be shingles. Given this, will treat with acyclovir. Given that I cannot exclude superimposed infection with the red streak up the arm, we will go ahead and treat for cellulitis as well with Bactrim. I considered admission of the patient for IV antibiotics, however based on reassuring history with absence of systemic symptoms, reassuring labs with no significant leukocytosis or elevation in inflammatory markers, I feel that discharge home with very close follow-up with primary care is appropriate. Prescription for acyclovir given, patient states he already has prescription for Bactrim at home prescribed by his primary care provider they had not yet started. He was discharged with very strict return precautions and PCP follow-up tomorrow. Critical Care Critical Care Time Critical Care Time: No
[2024-09-04] MEDS: KETOROLAC 30MG/ML VIAL 15 MG IV (00:01)
[2024-09-04] MEDS: ACYCLOVIR 400MG TAB 800 MG PO (00:01)
[2024-09-04] MEDS: SULFA/TRIMETHOPRIM 1 TABLET 1 EACH PO (00:01)
[2024-09-04 00:13] LABS: HIV Combo NEGATIVE (Negative)
[2024-09-04 00:21] LABS: Hepatitis C Ab Qual. W/ RFX NEGATIVE (Negative)
--- NOTE | 2024-09-04 00:41 | PC.NURSE ---
Report given to Becky RODRIGUEZ
[2024-09-04 01:06] VITALS: BP 122/76; PULSE 96; RESP 18; TEMP 36.9; O2SAT 98
[2024-09-08 09:13] LABS: HSV-1 DNA Negative (Negative); HSV-2 DNA Negative (Negative)
== END 2024-09-04 01:04 | disposition home or self-care (01) ==
PROVIDERS: Emergency Provider Emergency Medicine; PCP Nurse Practitioner Family
DX: B02.9 Zoster without complications (principal); R21 Rash and other nonspecific skin eruption; F17.210 Nicotine dependence, cigarettes, uncomplicated
CPT/HCPCS: 80053; 83605; 84145; 85025; 85651; 86140; 86803; 87040; 87389; 87529; 96361; 96374; 99283; J1885; J7120

== ENCOUNTER 2024-10-06 10:06 | Outpatient (CLI) | payer MEDICARE, SELFPAY ==
[2024-10-06 11:05] LABS: Basophils % 0.4 % (0.1-2.0); Eosinophils # 0.2 K/mm3 (0.0-0.4); Eosinophils % 2.8 % (0.1-12.0); Hematocrit 46.5 % (42.0-52.0); Hemoglobin 15.9 g/dL (14.1-18.0); Lymphocytes # 1.2 K/mm3 (0.7-4.5); Lymphocytes % 17.1 % (10-50); Mean Corpuscular HGB Conc 34.2 g/dL (31.8-35.4); Mean Corpuscular Hemoglobin 32.2 pg (27.0-31.2); Mean Corpuscular Volume 94.1 fl (80-94); Mean Platelet Volume 10.9 fl (7.4-10.4); Monocytes # 0.9 K/mm3 (0.1-1.0); Monocytes % 11.8 % (1.7-9.3); Neutrophils # 4.9 K/mm3 (1.8-7.8); Neutrophils % 67.6 % (37.0-80.0); Platelet Count 177 K/mm3 (142-424); Red Blood Count 4.94 M/mm3 (4.60-6.20); Red Cell Distribution Width 19.9 % (11.5-17.5); White Blood Count 7.2 K/mm3 (4.8-10.8)
[2024-10-06 12:00] LABS: Iron 68 ug/dL (49-181)
[2024-10-06 12:18] LABS: Total Iron Binding Capacity 303 ug/dL (261-462)
[2024-10-06 12:44] LABS: Ferritin 91.1 ng/ml (17.9-464)
== END 2024-10-06 23:59 | disposition home or self-care (01) ==
LOC: LAB 10:07
PROVIDERS: PCP Nurse Practitioner Family; Visit Provider Internal Medicine Medical Oncology
DX: D50.8 Other iron deficiency anemias (principal); K95.89 Other complications of other bariatric procedure
CPT/HCPCS: 36415; 82728; 83540; 83550; 85025

== ENCOUNTER 2024-11-11 12:41 | Outpatient (CLI) | payer MEDICARE, SELFPAY ==
--- OUTSIDE RECORDS SUMMARY | 2024-11-11 12:44 | XMS_ITS | Data Portability ---
Author Organization [facility] & BOZENA Becker ADMIN Address [address] [place] [id number] Assessment No assessment recorded. Plan of Treatment Reminders Order Date Submit Date Provider Last Modified By Organization Details Last Modified Time Details Appointments None record ed. Lab None record ed. Referral None record ed. Procedures None record ed. Surgeries None record ed. Imaging None record ed. Medication Orders None record ed. Patient TargetsNo targets recorded. Patient InstructionsNo instructions recorded. Reason for Referral None Reported. Results Created Date Observation Date Name Description Value Unit Range Abnormal Flag Note LastModifiedBy Organization Detail LastModifiedTime 12/30/[address], angio gram, neck, w/ contr ast No observ ation record ed. [email or web address] Not Available 2023 08:45:20 12/30/[address], head + brain , w/o contr ast No observ ation record ed. [place] Not Available 2023 08:47:23 Result Notes None recorded. Procedures Surgical History Date Name Laterality Status Provider Name and Address Organization Details Recorded Time 07/29/19 12 Gastric bypass for obesity completed Marge MCALLISTER [facility] 01/01/2024 11:02:57 07/29/19 12 cholecystectomy completed Marge MCALLISTER [facility] 01/01/2024 11:03:11 Imaging Results Imaging Date Name Status LastModified by Organiz ation Details LastModified Time 12/30/2023 CT, angiogram, neck, w/ contrast completed Information not available 12/30/2023 08:45:20 12/30/2023 CT, head + brain, w/o contrast completed Information not available 12/30/2023 08:47:23 Procedure Notes None recorded. Medical Equipment None Reported. Allergies Allergen ID Allergen Name Allergen Category Reaction Reaction Severity Criticality Documentation Date Start Date Code Code System Note Provider Name and Address Organization Details Recorded Time 579596 Product containin g penicilli n (product) medicatio n Not available Not available high 12/30/2023 89733 8001 SNOMED child aller gy [facility], [facility] & [place] 4 11:00:58 Medications Name Sig Start Date Stop Date Status Note LastModified by Organization Details LastModified Time venlafaxine ER 37.5 mg capsule,ext ended release 24 hr TAKE 1 CAPSULE BY MOUTH ONCE DAILY WITH FOOD active Not Available Not Available No t Available lamotrigine 200 mg tablet Take 1 tablet twice a day by oral route. active Not Available Not Available No t Available bumetanide 2 mg tablet Take 1 tablet every day by oral route. active Not Available Not Available No t Available clindamycin HCl 300 mg capsule TAKE 1 CAPSULE BY MOUTH EVERY 6 HOURS FOR 7 DAYS 12/31 completed Not Available Not Available Not Available trazodone 50 mg tablet Take 1 tablet every day by oral route. active Not Available Not Available No t Available ibuprofen 800 mg tablet TAKE 1 TABLET BY MOUTH EVERY 6 HOURS NEEDED FOR PAIN 12/31 completed Not Available Not Available Not Available gabapentin 400 mg capsule Take 1 capsule 3 times a day by oral route. active Not Available Not Available No t Available potassium chloride ER 10 mEq tablet,exte nded release TAKE 1 TABLET BY MOUTH ONCE DAILY WITH FOOD active Not Available Not Available No t Available folic acid 400 mcg tablet Take 1 tablet every day by oral route. active Not Available Not Available No t Available sulfamethox azole 800 mg-trimetho prim 160 mg tablet TAKE 1 TABLET BY MOUTH EVERY 12 HOURS FOR 7 DAYS active Not Available Not Available No t Available omeprazole 40 mg capsule,del ayed release Take 1 capsule every day by oral route. active Not Available Not Available No t Available pramipexole 0.5 mg tablet TAKE 1 TABLET BY MOUTH ONCE DAILY AT BEDTIME active Not Available Not Available No t Available oxycodone-a cetaminophe n 5 mg-325 mg tablet TAKE 1 TABLET BY MOUTH EVERY 4 HOURS NEEDED 12/31 completed Not Available Not Available Not Available tamsulosin 0.4 mg capsule TAKE 1 CAPSULE BY MOUTH ONCE DAILY 30 MINUTES FOLLOWING THE SAME MEAL EACH DAY 12/31 completed Not Available Not Available Not Available Euthyrox 75 mcg tablet Take 1 tablet every day by oral route. 12/31 completed Not Available Not Available Not Available trazodone 100 mg tablet TAKE 1 TABLET BY MOUTH ONCE DAILY 12/31 completed Not Available Not Available Not Available OneTouch Ultra Test strips USE 1 STRIP TO CHECK GLUCOSE THREE TIMES DAILY active Not Available Not Available No t Available ropinirole 2 mg tablet Take 1 tablet 3 times a day by oral route. active Not Available Not Available No t Available venlafaxine 37.5 mg tablet Take 1 tablet twice a day by oral route. 12/31 completed Not Available Not Available Not Available guanfacine 1 mg tablet Take 1 tablet every day by oral route. 12/31 completed Not Available Not Available Not Available nitroglycer in 0.4 mg sublingual tablet DISSOLVE ONE TABLET IN MOUTH UNDER THE TONGUE NEEDED FOR ANGINA. MAY REPEAT EVERY 5 MINUTES FOR UP TO 3 DOSES 12/31 completed Not Available Not Available Not Available omeprazole 20 mg capsule,del ayed release TAKE 1 CAPSULE BY MOUTH TWICE DAILY 12/31 completed Not Available Not Available Not Available bumetanide 1 mg tablet TAKE 1 TABLET BY MOUTH ONCE DAILY 12/31 completed Not Available Not Available Not Available albuterol sulfate HFA 90 mcg/actuati on aerosol inhaler INHALE 2 PUFFS BY MOUTH EVERY 4 HOURS NEEDED active Not Available Not Available No t Available methylpheni date ER 36 mg tablet,exte nded release 24 hr TAKE 1 TABLET BY MOUTH IN THE MORNING active Not Available Not Available No t Available azithromyci n 500 mg tablet TAKE 2 TABLETS BY MOUTH A ONE TIME DOSE 12/31 completed Not Available Not Available Not Available rosuvastati n 5 mg tablet Take 1 tablet every day by oral route. active Not Available Not Available No t Available rosuvastati n 10 mg tablet TAKE 1 TABLET BY MOUTH ONCE DAILY 12/31 completed Not Available Not Available Not Available guanfacine ER 1 mg tablet,exte nded release 24 hr TAKE 1 TABLET BY MOUTH ONCE DAILY active Not Available Not Available No t Available Vraylar 4.5 mg capsule Take 1 capsule every day by oral route. active Not Available Not Available No t Available Vraylar 3 mg capsule TAKE 1 CAPSULE BY MOUTH ONCE DAILY 12/31 completed Not Available Not Available Not Available OneTouch Ultra2 Meter USE DIRECTED active Not Available Not Available No t Available OneTouch Delica Plus Lancet 33 gauge USE DIRECTED active Not Available Not Available No t Available potassium chloride 10 mEq oral packet Take 1 packet twice a day by oral route. 12/31 completed Not Available Not Available Not Available Vitals Date Recorded Body weight Body temperature Body mass index (BMI) Body height Provider Name and Address Organization Details Last Updated DateTime 01/01/2024 60333.17 g 96.9 [degF] 28.9 kg/m2 182.88 cm Marge Flaherty [facility] & [place] 01/01/2024 11:00:44 Social History Question Answer Notes LastModified by Organizat ion Details LastModified Time Tobacco Smoking Status Current Every Day Smoker Margejose Mcgrawence [facility] & [place] 01/01/2024 11:02:21 How Much Tobacco Do You Smoke? 1 PPD Information not available 01/01/2024 How Many Years Have You Smoked Tobacco? 32 Information not available 01/01/2024 Sex: Unknown Functional Status None recorded. Mental Status None recorded. Family History Nothing Reported. Medical History Condition Response Anxiety Disorder Y Allergies/Hayfever Y Acid Reflux (GERD) Y Heart Disease Y Cancer Y Depression Y Past Encounters Encounter ID Performer Location Encounter Start Date Encounter Closed Date Diagnosis/Indication Diagnosis SNOMED-CT Code Diagnosis ICD10 Code Diagnosis Note [id number] Gissell Mason MD [facility] [address] [facility] [place] [address] 01/01/2024 10:48:30 01/01/2024 11:24:43 Imaging result abnormal [id number] R93.89 I have reviewed the patient's imaging and his clinical history. He has no evidence of tonsilitis and exam is not consistent with any acture process. Smoker 32145182 F17.200 Encouraged patient to stop smoking. Stopping smoking and using tobacco products is the best way to lower risks of head and neck malignancy . Health Concerns Section Related Observation LastModified by Organization Detai ls LastModified Time None Recorded Concern Status LastModified by Organization Details LastModified Time None Recorded Advance Directives Directive None Recorded Payers Encounter Date Sequence Insurance Name Policy Number Policy Reese Covered Member ID Reese Member ID Guarantor Name 01/01/2024 1 [place]MEDICARE REPLACEMENT HMO) [id number] Cat Prater [id number] Cat Prater Notes Date Note Type Note Provider Name and Address Organization Details Recorded Time 01/01/2024 text/html 12/31/23- Patient is here for a follow up after being seen at [facility] ED 12/25/23 for upper extremity pedal spasm and slurred speech. Patient was diagnosed with TIA and has follow up with Neurology and Cardiology. Patient had scans and was referred to ENT for right side tonsil concerns. Patient has no difficulty swallowing. No history of strep throat he is a everyday smoker 1 1/2 packs per day. 20+ year smoker. He denies any throat pain or dysphagia. Gissell Mason MD [address], [place], [address], [place] - [facility] - [place] & [place] 01/01/2024 13:00:20
--- OUTSIDE RECORDS SUMMARY | 2024-11-11 12:44 | XMS_ITS | Data Portability ---
Author Organization [facility] ROBERT Ragland [place] [facility]OSED Address [address] [place] [address] Assessment Encounter Date Assessment Date Assessment LastModified by Organization Details LastModified Time 05/15/2024 05/15/2024 Clinically presents as right thumb superficial partial nail plate avulsion. We discussed surgical intervention to remove the remaining nail plate and possibly repair the nail bed, however, patient was not interested in surgery as he reports no significant pain at this time. I explained the nail plate should regrow, however, he may have chronic deformity of the nail plate. Patient expressed understanding in this regard. He will return to office on an as needed basis. [email or web address] Not available 05/15/2024 08:50:17 Plan of Treatment Reminders Order Date Submit Date Provider Last Modified By Organization Details Last Modified Time Details Appointments None record ed. Lab None record ed. Referral None record ed. Procedures None record ed. Surgeries None record ed. Imaging None record ed. Medication Orders None record ed. Patient TargetsNo targets recorded. Patient InstructionsNo instructions recorded. Reason for Referral None Reported. Problems No Known Problems Medical Equipment None Reported. Allergies Allergen ID Allergen Name Allergen Category Reaction Reaction Severity Criticality Documentation Date Start Date Code Code System Note Provider Name and Address Organization Details Recorded Time 017872 prednison e medicatio n Not available Not available Not available 06/21/20162012 8640 RxNorm Comme nt: Creat ed By: Niels taylorCre ated Date: 2012 10:04 :31 AM; [facility] 4 08:22:43 610891 Product containin g penicilli n (product) medicatio n Not available Not available Not available 06/22/20162012 19725 8001 SNOMED Comme nt: Creat ed By: Niels taylorCre ated Date: 2012 10:03 :33 AM; Not Available [facility] 6 07:42:39 Medications Name Sig Start Date Stop Date Status Note LastModified by Organization Details LastModified Time vitamin A active Not Available Not Shawnee ilable Not Available vitamin E active Not Available Not Shaw[place] ilable Not Available omeprazole active Not Available Not Av ailable Not Available bumetanide active Not Available Not Av ailable Not Available nitroglycerin active Medica tion Description : nitroglycer in; refills:0 Not Available Not Available Not Available folic acid active Not Available Not Av ailable Not Available ropinirole active Not Available Not Av ailable Not Available lamotrigine active Not Available Not A vailable Not Available venlafaxine active Not Available Not A vailable Not Available guanfacine active Not Available Not Av ailable Not Available Vitamin D active Not Available Not [place] ilable Not Available trazodone active Not Available Not [place] ilable Not Available gabapentin active Medicatio n Description : gabapentin; refills:0 Not Available Not Available Not Available Concerta active Not Available Not Avai lable Not Available Potachlor active Not Available Not Shawnee ilable Not Available rosuvastatin active Not Available Not Available Not Available Vraylar active Not Available Not Avail able Not Available Vitals Date Recorded Body height Body mass index (BMI) Body weight Pain severity - 0-10 verbal numeric rating [Score] - Reported Provider Name and Address Organization Details Last Updated DateTime 05/15/2024 182.88 cm 30 kg/m2 348593.91 g 1 [facility] 05/15/2024 08:23:00 Social History None recorded. Functional Status None recorded. Mental Status None recorded. Family History Nothing Reported. Medical History No medical history recorded. Past Encounters Encounter ID Performer Location Encounter Start Date Encounter Closed Date Diagnosis/Indication Diagnosis SNOMED-CT Code Diagnosis ICD10 Code Diagnosis Note [id number] NICOLASA MONAE PA-C [facility] [address] [place] [address] 05/15/2024 07:56:12 05/15/2024 08:30:59 Acquired deformity of nail plate 719450478 L60.8 DOI: 05/01/24 Health Concerns Section Related Observation LastModified by Organization Detai ls LastModified Time None Recorded Concern Status LastModified by Organization Details LastModified Time None Recorded Advance Directives Directive None Recorded Payers Encounter Date Sequence Insurance Name Policy Number Policy Reese Covered Member ID Reese Member ID Guarantor Name 05/15/2024 1 [place]MED[place]AC[place] HMO) [id number] Cat Prater [id number] Cat Prater Notes Date Note Type Note Provider Name and Address Organization Details Recorded Time 05/15/2024 text/html Cat is a 48 yo RHD M who presents today for evaluation of right thumb nail laceration. He states he was using a jigsaw when it slipped and cut the nail two weeks ago. He was initially evaluated at his PCP office and completed antibiotics as prescribed. [facility]: Funmilayo Ayala NP Hand dominance: {{Right* Left ambi dextrous}}Location : {{Right* Left Bila teral}} {{Hand Wrist Elbow Other Thumb#}} Pain level: {{0 1* 2 3 4 5 6 7 8 9 10}} Date of injury: 05/01/2024uration : 14 days Recent Surgery: {{Yes No*}}In office procedure? {{Yes No*}} Previous upper extremity surgery? {{Yes No*}} Have you or any of your immediate family members been seen by our hand surgeons before? 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, [address], [facility] 05/15/2024 08:55:26
[2024-11-11] MEDS: ALBUTEROL 0.083% 2.5 MG/3 ML NEB IH (13:24)
--- NOTE | 2024-11-11 13:25 | PC.NURSE ---
PFT and 6 Minute Walk completed without incident. Albuterol 0.083% given via HHN, per written protocol, Pt tolerated tx well.
--- NOTE | 2024-11-11 13:55 | CT_ITS ---
FINAL REPORT TECHNIQUE: Thin section axial images were obtained from the lung apices to the upper abdomen by computed tomography. Reformatted images were obtained and reviewed. This study was performed with techniques to keep radiation doses al low as reasonably achievable (ALARA). Individualized dose reduction techniques using automated exposure control or adjustment of mA and/or kV according to the patient's size were employed. CLINICAL HISTORY: lung cancer screening current smoker 2 ppd x 32 years COMPARISON: None FINDINGS: CHEST CT LOW DOSE 49-year-old male, [id number] history of smoking, current smoker CTDI vol (mGy): 2.90 DLP (mGy-cm): 101.34 There is no axillary adenopathy. There is no mediastinal or hilar mass or adenopathy. The heart is normal in size. There is no pericardial or pleural effusion. Lung window images demonstrate no suspicious infiltrate or nodule. Limited images of the upper abdomen demonstrate postoperative change of a prior gastric bypass. IMPRESSION: Lung-RADS category 1. Recommend 12 month follow up low dose chest CT. Reviewed, Interpreted and Dictated by Teto Johnson MD Transcribed by Gladys Smith Authenticated and [facility]
== END 2024-11-11 23:59 | disposition home or self-care (01) ==
LOC: RT 12:42
PROVIDERS: PCP Nurse Practitioner Family; Visit Provider Internal Medicine Pulmonary Disease
DX: R06.09 Other forms of dyspnea (principal); F17.210 Nicotine dependence, cigarettes, uncomplicated
CPT/HCPCS: 71271; 94060; 94618; 94726; 94729; J7613

== ENCOUNTER 2024-11-18 07:14 | Day surgery (SDC) | payer MEDICARE, SELFPAY ==
[2024-11-16 16:10] VITALS: BMI 30.5
[2024-11-18] MEDS: LACTATED RINGERS 1000ML 1,000 ML 50 ML IV (08:14)
[2024-11-18 08:15] VITALS: BP 103/61; PULSE 53; RESP 18; TEMP 36.3; O2SAT 95
[2024-11-18 08:28] LABS: POC Glucose,Bedside 82 (70-110)
--- NOTE | 2024-11-18 08:54 | P.PNANES_ITS ---
[facility] Disclaimer: The information contained in this section may have been updated after the patient was seen, as this information can be updated by other users. Medical History Tobacco abuse counseling Dyspnea on exertion Encounter for screening for malignant neoplasm of lung Smoking greater than 30 pack years Asthma COPD (chronic obstructive pulmonary disease) (HFpEF) heart failure with preserved ejection fraction Iron deficiency anemia following bariatric surgery Coronary artery disease JUDY (obstructive sleep apnea) History of arthritis History of TIA (transient ischemic attack) History of coronary artery disease History of CHF (congestive heart failure) History of diabetes mellitus History of hyperlipidemia History of hypertension Surgical History History of cholecystectomy History of gastric bypass Family History Other Coronary artery disease Diabetes Hypertension Social History Smoking Status: Current every day smoker tobacco type: cigarettes packs per day: 1 alcohol intake: former year quit: 2020 substance use type: denies use current occupational status: disabled Travel in the last 8 weeks: None household members: spouse housing: house marital status: number of children: 2 number of grandchildren: 5 caffeine: Yes Have you lived/traveled outside [place] in past 30 days?: No Contact w/someone who lives/traveled outside US past 30 days?: No Exposure to someone with infectious disease in past 14 days?: No Do you have a fever (greater than 100.4 F or 38 C)?: No Have you tested positive for COVID-19: No Exposed to someone with COVID-19 in past 14 days?: No Do you have a sore throat?: No Do you have a cough?: No Do you have any weakness?: No Do you have any diarrhea?: No Are you experiencing any unusual bleeding?: No Do you have any muscle aches/pain?: No Do you have any abdominal pain?: No Are you experiencing loss of taste or smell?: No [facility] Anesthesia Checklist Patient Identification Patient Identification: Arm Band Structural Data Admitted From: Home Planned Operative Procedure/s: Colonoscopy Consent for Planned Operative Procedure(s) Verified: Yes Verified Documents: Surgical Consent and History and Physical NPO Status Verified Time NPO: 03:30 (finished prep) Additional verifications Anesthesia Reactions: No Airway Assessment Mallampati Score:: Class II C-Spine Mobility Assessed: Yes TMJ Mobility Assessed: Yes Dentition: Good Dentition Neurological Assessment Level of Consciousness: Awake, Alert and Appropriate Anesthesia Plan Anesthesia Risk discussed: Yes Anesthesia Plan: Verified ASA Class: III Anesthesia Type: MAC
--- NOTE | 2024-11-18 08:59 | EXP.HP ---
History of Present Illness *Admission Date: 11/18/24 *Reason for visit:: Screening for colon cancer *History of present illness: Mrs. Prater is a 49-year-old female who is here for screening for colon cancer. The examination is deemed medically necessary for screening colonoscopy. The patient has been seen, interviewed and examined prior to the procedure by both myself and the anesthesia provider. [facility] Disclaimer: The information contained in this section may have been updated after the patient was seen, as this information can be updated by other users. Medical History Tobacco abuse counseling Dyspnea on exertion Encounter for screening for malignant neoplasm of lung Smoking greater than 30 pack years Asthma COPD (chronic obstructive pulmonary disease) (HFpEF) heart failure with preserved ejection fraction Iron deficiency anemia following bariatric surgery Coronary artery disease JUDY (obstructive sleep apnea) History of arthritis History of TIA (transient ischemic attack) History of coronary artery disease History of CHF (congestive heart failure) History of diabetes mellitus History of hyperlipidemia History of hypertension Surgical History History of cholecystectomy History of gastric bypass Family History Other Coronary artery disease Diabetes Hypertension Social History Smoking Status: Current every day smoker tobacco type: cigarettes packs per day: 1 alcohol intake: former year quit: 2020 substance use type: denies use current occupational status: disabled Travel in the last 8 weeks: None household members: spouse housing: house marital status: number of children: 2 number of grandchildren: 5 caffeine: Yes Have you lived/traveled outside US in past 30 days?: No Contact w/someone who lives/traveled outside US past 30 days?: No Exposure to someone with infectious disease in past 14 days?: No Do you have a fever (greater than 100.4 F or 38 C)?: No Have you tested positive for COVID-19: No Exposed to someone with COVID-19 in past 14 days?: No Do you have a sore throat?: No Do you have a cough?: No Do you have any weakness?: No Do you have any diarrhea?: No Are you experiencing any unusual bleeding?: No Do you have any muscle aches/pain?: No Do you have any abdominal pain?: No Are you experiencing loss of taste or smell?: No Other Medical History Have you received the Pneumonia Vaccine: Yes Review of Systems Review of Systems Review of systems (narrative): Negative *Cardiovascular Comments: Negative *Gastrointestinal Comments: Negative *Genitourinary Comments: Negative *Musculoskeletal Comments: Negative *Neurologic Comments: Negative Meds Home Medications and Allergies Home Medications ?Medication ?Instructions ?Recorded ?Confirmed ?Type albuterol sulfate 90 mcg/actuation 2 puff inhalation Q4H PRN Dyspnea 02/26/24 11/18/24 History aerosol inhaler aspirin 81 mg capsule 81 mg PO DAILY 02/26/24 11/18/24 History cetirizine 10 mg capsule (All Day 10 mg PO DAILY PRN allergies 02/26/24 11/18/24 History Allergy (cetirizine)) folic acid 400 mcg tablet 400 mcg PO DAILY 02/26/24 11/18/24 History gabapentin 400 mg capsule 400 mg PO DAILY 02/26/24 11/18/24 History guanfacine 1 mg tablet,extended 1 mg PO DAILY 02/26/24 11/18/24 History release 24 hr lamotrigine 200 mg tablet 200 mg PO DAILY 02/26/24 11/18/24 History methylphenidate HCl 36 mg 36 mg PO DAILY 02/26/24 11/18/24 History tablet,extended release 24 hr (Concerta) omeprazole 20 mg capsule,delayed 20 mg PO BID 02/26/24 11/18/24 History release potassium chloride 10 mEq 10 meq PO DAILY 02/26/24 11/18/24 History tablet,extended release pramipexole 0.5 mg tablet 0.5 mg PO HS 02/26/24 11/18/24 History tamsulosin 0.4 mg capsule 0.4 mg PO QHS 02/26/24 11/18/24 History trazodone 100 mg tablet 100 mg PO DAILY 02/26/24 11/18/24 History venlafaxine 37.5 mg 37.5 mg PO DAILY 02/26/24 11/18/24 History capsule,extended release 24 hr cariprazine 3 mg capsule (Vraylar) 4.5 mg PO DAILY 04/20/24 11/18/24 History rosuvastatin 10 mg tablet 10 mg PO DAILY #90 tabs 05/11/24 11/18/24 Rx blood sugar diagnostic (OneTouch #10 ea 06/16/24 11/18/24 History Ultra Test strips) blood-glucose sensor (Dexcom G6 #1 ea 06/16/24 11/18/24 History Sensor device) blood-glucose,equipment maintenance supervisor,cont #1 ea 06/16/24 11/18/24 History (Dexcom G6 [employer] [facility] Advisor) bumetanide 1 mg tablet 2 mg (2 x 1 mg) PO DAILY #60 tabs 07/13/24 11/18/24 Rx deutetrabenazine 24 mg 24 mg PO DAILY 07/16/24 11/18/24 History tablet,extended release 24 hr (Austedo XR) blood-glucose transmitter (Dexcom #1 ea 08/11/24 11/18/24 History G6 Transmitter device) linaclotide 72 mcg capsule 72 mcg PO DAILY 08/11/24 11/18/24 History (Linzess) spironolactone 25 mg tablet 12.5 mg (1/2 x 25 mg) PO DAILY #30 08/11/24 11/18/24 Rx tabs dapagliflozin propanediol 10 mg 10 mg PO DAILY #30 tabs 09/07/24 11/18/24 Rx tablet (Farxiga) budesonide-formoterol HFA 160 2 puff inhalation BID 90 days 09/09/24 11/18/24 Rx mcg-4.5 mcg/actuation aerosol #10.2 grams inhaler midodrine 10 mg tablet 10 mg PO BID #60 tabs 09/10/24 11/18/24 Rx tadalafil 10 mg tablet 10 mg PO DAILY PRN sexual activity 09/10/24 11/18/24 Rx #20 tabs peg 3350-electrolytes 236 240 ml PO Q10M colonscopy #4,000 mL 11/04/24 11/18/24 Rx gram-22.74 gram-6.74 gram-5.86 gram solution (Golytely) New Prescriptions to Start Prescriptions: Allergies Allergy/AdvReac Type Severity Reaction Status Date / Time Penicillins Allergy Intermediate Rash Verified 11/18/24 08:12 Exam Data for Last 24 hours Vital signs and Labs for Last 24 Hours: Temp Pulse Resp BP Pulse Ox O2 Del Method 97.3 F L 53 L 18 103/61 L 95 Room Air 11/18/24 08:15 11/18/24 08:15 11/18/24 08:15 11/18/24 08:15 11/18/24 08:15 11/18/24 08:15 Laboratory Results - last 24 hr 11/18/24 08:18: POC Glucose 82 I & O for Last 24 hours: Intake & Output 11/15/24 11/16/24 11/17/24 11/18/24 23:59 23:59 23:59 23:59 Weight 225 lb *Routine HEENT Exam Head: Present normocephalic Eye: Present EOMI and PERRL ENT: Present mucous membranes moist *Routine Neck Exam Neck: Present supple *Routine Respiratory Exam Respiratory: Present CTA bilaterally *Routine Cardiovascular Exam Cardiovascular: Present RRR *Routine Abdominal Exam Abdominal: Present soft and normoactive bowel sounds; Absent tenderness *Routine Rectal Exam Rectal:: deferred *Routine Genitalia Exam Genitalia:: deferred *Routine Extremities Exam Extremities: Absent cyanosis, clubbing or edema *Routine Skin Exam Skin: Present warm; Absent rash *Routine Neurological Exam Neurological: Present alert and oriented X3 Assessment and Plan *Assessment and plan (1) Screening for colon cancer: Status: Acute Category: Medical Code(s): Z12.11 - Encounter for screening for malignant neoplasm of colon Plan A/P: 1. Screening for colon cancer is the preprocedural diagnosis. The patient will be anesthetized/sedated using MAC sedation. The patient has been seen and examined. Cardiac and lung assessment prior to the examination is stable. Proceed with planned screening colonoscopy.
[2024-11-18 09:04] VITALS: O2SAT 98
--- NOTE | 2024-11-18 09:14 | HMH.PROCNOTE ---
[facility] Procedure Note Date: 11/18/24 Time: 09:34 Procedure Note:: Colonoscopy Procedure Report: Colonoscopy with cold snare polypectomy Endoscopist: Kaiden Casillas II, MD Referring physician: JAMES Saeed Date of Procedure: November 18, 2024 Equipment: Olympus 190 variable stiffness pediatric colonoscope Sedation: MAC sedation Indication: Mr. Prater is a 49-year-old gentleman who is here for screening colonoscopy. He does state that he had a colonoscopy 15 years ago. He reports no abdominal pain, weight loss, change in his bowel habits or rectal bleeding. He does state that his maternal aunt had colon cancer in her late 50s or early 60s. Procedure: Prior to the procedure, a history and physical exam was performed, and patient's medications and allergies were reviewed. The risks, benefits and alternatives of the sedation and procedure were discussed with the patient. All questions were answered and informed consent was obtained. The patient was brought to the procedure room. Patient identification and proposed procedure were verified by the physician and the nurse. The patient was placed in a left lateral decubitus position and the scope was passed under direct vision. Throughout the procedure, the patient's blood pressure, pulse, and oxygen saturations were monitored continuously. The colonoscopy was accomplished without difficulty. The patient tolerated the procedure well. Findings: On digital rectal examination there was normal rectal tone. There were no external hemorrhoids. The colonoscope was introduced through the anal canal to the rectum and advanced to the cecum. The ileocecal valve and appendiceal orifice were identified. The scope was advanced a short distance into the ileum which appeared grossly normal. The scope was then withdrawn into the colon. There was a single 4 mm polyp in the sigmoid colon removed via cold snare polypectomy. The remaining cecum, ascending, transverse, descending, sigmoid and rectum were grossly normal. There were no other mucosal abnormalities identified. Upon retroflexion within the rectum there were grade 1-2 internal hemorrhoids. The preparation was excellent throughout with Pavo Preparation Score of 9. The cecal time was 12 minutes. Impression: 1. Diminutive 4 mm sigmoid colon polyp 2. Grade 1-2 internal hemorrhoids Plan: I will follow-up the polyp histology and recommend repeat surveillance colonoscopy again in 7 years if the polyp is adenomatous.
[2024-11-18 09:37] VITALS: BP 101/72; PULSE 63; RESP 16; TEMP 36.3; O2SAT 95
[2024-11-18 09:47] VITALS: BP 117/69; PULSE 60; RESP 16; O2SAT 98
[2024-11-18 09:57] VITALS: BP 107/70; PULSE 68; RESP 18; O2SAT 98
[2024-11-18 10:03] VITALS: BP 107/76; PULSE 68; RESP 16; O2SAT 99
== END 2024-11-18 10:15 | disposition home or self-care (01) ==
PROVIDERS: PCP Nurse Practitioner Family; Visit Provider Internal Medicine Gastroenterology
PROC: 0DJD8ZZ Inspection of Lower Intestinal Tract, Via Natural or Artificial Opening Endoscopic (ICD-10-PCS; CPT 45378; principal; 2024-11-18 09:00)
DX: D12.5 Benign neoplasm of sigmoid colon (principal); K64.8 Other hemorrhoids; Z12.11 Encounter for screening for malignant neoplasm of colon; Z80.0 Family history of malignant neoplasm of digestive organs; E11.9 Type 2 diabetes mellitus without complications
CPT/HCPCS: 45385; 82962; J7120

== ENCOUNTER 2025-02-09 10:27 | Outpatient (CLI) | payer MEDICARE, SELFPAY ==
--- OUTSIDE RECORDS SUMMARY | 2024-12-10 14:59 | XMS_ITS | Encounter Summary ---
Author Organization [email or web address] ([place], [place], [place], [place]) Address [address] [place] [address] Care Team Providers Care Photo Checker Name Role Phone Unavailable Primary Care Provider Unavailabl e Reason for Referral * CAT Scan (Routine) - New Request Specialty Diagnoses / Procedures Referred By Francis lainez Referred To Contact Radiology Diagnoses Pain in right knee Procedures CT lower extremity without IV contrast right Ehsan Womack MD [address] [place] [address] Phone: tel: fax: Referral ID Status Reason Start Date Expiration Date V isits Requested Visits Authorized [id number] New Request 12/09/2024 12/09/2025 1 1 Reason for Visit * CAT Scan (Routine) - New Request Specialty Diagnoses / Procedures Referred By Francis lainez Referred To Contact Radiology Diagnoses Pain in right knee Procedures CT lower extremity without IV contrast right Ehsan Womack MD [address] [place] [id number] Phone: tel: fax: Referral ID Status Reason Start Date Expiration Date V isits Requested Visits Authorized [id number] New Request 12/09/2024 12/09/2025 1 1 Encounter Details Date Type Department Care Team (Late st Contact Info) Description 12/10/2024 2:59 PM EDT - 12/10/2024 11:59 PM EDT Hospital Encounter [facility] [address] [place] [id number] Ehsan Womack MD [address] [place] [address] Pain in right knee Discharge Disposition: Home or Self Care Social History Tobacco Use Types Packs/Day Years Used Date Smoking Tobacco: Never Assessed Sex and Gender Information Value Date Recorded Sex Assigned at Male 01/23/2022 5:31 PM CDT Legal Sex Male 5:31 PM CDT Gender Identity Male 01/23/2022 5:31 PM CDT Sexual Orientation Not on file documented as of this encounter Plan of Treatment Not on file documented as of this encounter Procedures Procedure Name Priority Date/Time Associated Diagnosis Comments CT LOWER EXTREMITY WITHOUT IV CONTRAST RIGHT Routine 12/10/2024 3:32 PM EDT Pain in right knee documented in this encounter Results * CT lower extremity without IV contrast right (12/10/2024 3:32 PM EDT) Anatomical Region Laterality Modality Lower Extremity, Hip, Femur, Leg, Knee, Ankle, Foot Computed Tomography (CT) 12/10/2024 5:25 PM EDT Impressions 12/10/2024 5:27 PM EDT Degenerative changes of the knee. Images reviewed, interpreted, and dictated by Luis Eduardo Qureshi MD Narrative 12/10/2024 5:[address] RIGHT LOWER EXTREMITY HISTORY: Degenerative changes, preop knee pain, swelling and limited range of motion FINDINGS: Thin section axial CT images of the lower extremity were obtained without contrast. Multiplanar reformatted images were also obtained. This study was performed with techniques to keep radiation doses as low as reasonably achievable, (ALARA). Individualized dose reduction techniques using automated exposure control or adjustment of mA and/or kV according to the patient size were employed. There is no evidence of fracture or dislocation. Degenerative changes are noted of the knee. A moderate joint effusion is present. No acute soft tissue abnormality is seen. The musculature is intact. Procedure Note Luis Eduardo Qureshi MD - 12/10/2024 CT RIGHT LOWER EXTREMITY HISTORY: Degenerative changes, preop knee pain, swelling and limited range of motion FINDINGS: Thin section axial CT images of the lower extremity were obtained without contrast. Multiplanar reformatted images were also obtained. This study was performed with techniques to keep radiation doses as low as reasonably achievable, (ALARA). Individualized dose reduction techniques using automated exposure control or adjustment of mA and/or kV according to the patient size were employed. There is no evidence of fracture or dislocation. Degenerative changes are noted of the knee. A moderate joint effusion is present. No acute soft tissue abnormality is seen. The musculature is intact. IMPRESSION: Degenerative changes of the knee. Images reviewed, interpreted, and dictated by Luis Eduardo Qureshi MD Ehsan Womack MD IMG CT ORDERABLES Final Result documented in this encounter Visit Diagnoses Diagnosis Pain in right knee documented in this encounter
--- OUTSIDE RECORDS SUMMARY | 2025-02-09 10:50 | XMS_ITS | Encounter Summary ---
Author Organization [employer] ([place], [place], [place], [place]) Address [address] [place] [address] Care Team Providers Care Compliance And Control Analyst Name Role Phone Unavailable Primary Care Provider Unavailabl e Encounter Details Date Type Department Care Team (Late st Contact Info) Description 11/10/2018 Transcribed Document [facility] [place] [facility] [address] [place] [address] ProviderJoe MD [address] [place] [id number] Social History Tobacco Use Types Packs/Day Years Used Date Smoking Tobacco: Never Assessed Sex and Gender Information Value Date Recorded Sex Assigned at Male 01/23/2022 5:31 PM CDT Legal Sex Male 5:31 PM CDT Gender Identity Male 01/23/2022 5:31 PM CDT Sexual Orientation Not on file documented as of this encounter Miscellaneous Notes * [employer]ner Conversion Note - Historical ProviderMD - 11/10/2018 10:55 AM CDT ED Assessment Entered On: 11/10/2018 11:26 EDT Performed On: 11/10/2018 11:25 EDT by Graciela Campos RN ED Quick Look Assessment Level of Consciousness : Alert, Awake Affect/Behavior : Appropriate, Calm, Cooperative Orientation : Oriented x 4 Skin Temperature : Warm Graciela Campos RN - 11/10/2018 11:25 EDT ED General-Functional Assess Information Obtained From : Patient Preferred Communication Mode : Verbal Communication Barrier : None Primary Language : Hong [place] Any Spiritual/Cultural Needs or Requests : No Currently in Unsafe Situation : No Graciela Campos RN - 11/10/2018 11:25 EDT Social Habits Smoking Status : 10 or more cigarettes (1/2 pack or more)/day in last 30 days Smokeless Tobacco Status : Never Desires Tobacco Cessation Medication : No Reason for No Tobacco Cessation Medication : ED/procedural patient only Desires Tobacco Cessation Calc : 1 Graciela Campos RN - 11/10/2018 11:25 EDT Social History (As Of: 11/10/2018 11:26:56 EDT) Tobacco: Use in Last 12 Months: Cigarettes. Smoking Status Current every day smoker. Years of Use: 20. Packs/Tins Daily: 1. (Last Updated: 12/13/2013 22:50:03 EDT by ROSALINE DANIEL RN) Smoking Status Current every day smoker. Five or more cigarettes per day Smoking Frequency Within Last 30 Days. Use in Last 12 Months: Cigarettes. Packs/Tins Daily: 3. (Last Updated: 09/19/2016 08:18:20 EST by DORI WOMACK RN) Alcohol: Alcohol Use History Yes. Use in Last 12 Months: Yes. Alcohol Use Frequency Socially. (Last Updated: 01/17/2015 11:08:28 EDT by BALTAZAR GILBERT) Substance Abuse: Drug Use Hx: No. (Last Updated: 12/13/2013 22:49:50 EDT by ROSALINE DANIEL RN) Nutrition/Health: Caffeine intake amount: 4 cups a day. (Last Updated: 09/19/2016 08:18:43 EST by DORI WOMACK RN) Gastrointestinal ED Gastrointestinal Assessment WDL : WDL with exceptions Gastrointestinal Symptoms : Hiccoughing Graciela Campos RN - 11/10/2018 11:25 EDT documented in this encounter Plan of Treatment Not on file documented as of this encounter Visit Diagnoses Not on filedocumented in this encounter
--- OUTSIDE RECORDS SUMMARY | 2025-02-09 10:50 | XMS_ITS | Clinical Summary ---
Author Organization [facility] Address [address] [place] [address] Care Team Providers Care Fiscal Services Director Name Role Phone Shannan Bhagat APRN Primary Care Provider [phone] Allergies Active Allergy Reactions Criticality Noted Date Comments Penicillins Unknown - Patient st ates they do not know rxn details Low 08/26/2014 Wound Dressing Adhesive Itching Medium 08/09/2022 Social History Tobacco Use Types Packs/Day Years Used Date Smoking Tobacco: Every Day Alcohol Use Standard Drinks/Week Comments Yes 0 (1 standard drink = 0.6 oz pur e alcohol) Sex and Gender Information Value Date Recorded Sex Assigned at Not on file Legal Sex Male 8:34 PM EDT Gender Identity Not on file Sexual Orientation Not on file Last Filed Vital Signs Vital Sign Reading Time Taken Comments Blood Pressure 94/69 08/17/2022 12:17 PM EST Pulse 80 08/17/2022 12:17 PM EST Temperature - - Respiratory Rate 11 08/17/2022 11:33 AM EST Oxygen Saturation 97% 08/17/2022 11:51 AM EST Inhaled Oxygen Concentration - - Weight 95.7 kg (211 lb) 08/26/2014 10:44 AM EST Height 182.9 cm (6') 08/26/2014 10:44 AM EST Body Mass Index 28.62 08/26/2014 10:44 AM EST Plan of Treatment Health Maintenance Due Date Last Done Comments [facility]-Depression Screening 1974 [facility]-HIV Screening 1974 [facility]-Hepatitis C Screening 1974 [facility]-Medicare Annual Wellness (AWV) 1974 [facility]-/Child/Adol SDOH Screenings 1974 [facility]- SDOH Screenings 1992 [facility]-Adult SDOH Screenings 1992 [facility]-DTaP,Tdap,and Td Vaccine s (1 - Tdap) 1993 [facility]-Hepatitis B Vaccines (1 of 3 - 19+ 3-dose series) 1993 CT Colonography 2019 Colonoscopy 2019 FIT-DNA 2019 FIT 2019 FOBT 2019 Sigmoidoscopy 2019 [facility]-Colorectal Cancer Screening 2019 [id number] Vaccine (1 - 2023-25 season) 2024 [facility]-Pneumococcal Vaccine: 50 + Years (2 of 2 - PCV) 2024 05/01/2007 [facility]-Zoster Vaccines (1 of 2) 2024 [facility]-Influenza Vaccine (#1) 03/29/202504/30, 08/19/2020, 06/03/2008 HPV Vaccines Aged Out No longer eligi ble based on patient's age to complete this topic [facility]-HIB Vaccines Aged Out No longer e ligible based on patient's age to complete this topic [facility]-Hepatitis A Vaccines Aged Out No longer eligible based on patient's age to complete this topic [facility]-IPV Vaccines Aged Out No longer e ligible based on patient's age to complete this topic [facility]-Rotavirus Vaccines Aged Out No lo nger eligible based on patient's age to complete this topic Insurance [facility] MEDICARE Care Teams Fiscal Services Director Relationship Specialty Start Date End Date Shannan Bhagat APRN [address] [place] [phone] PCP - General 08/17/22
--- OUTSIDE RECORDS SUMMARY | 2025-02-09 10:50 | XMS_ITS | Referral Summary ---
Author Organization [employer] ([place], [place], [place], [place]) Address [address] [place] [address] Care Team Providers Care Electronic Assembler Group Leader Name Role Phone Unavailable Primary Care Provider Unavailabl e Encounters Date Type Department Care Team Description 12/10/2024 2:59 PM EDT - 12/10/2024 11:59 PM EDT Hospital Encounter [facility] - [address] [facility] [address] [place] [address] Ehsan Womack MD Pain in right knee Discharge Disposition: Home or Self Care from Last 3 Months Social History Tobacco Use Types Packs/Day Years Used Date Smoking Tobacco: Never Assessed Sex and Gender Information Value Date Recorded Sex Assigned at Male 01/23/2022 5:31 PM CDT Legal Sex Male 5:31 PM CDT Gender Identity Male 01/23/2022 5:31 PM CDT Sexual Orientation Not on file Plan of Treatment Not on file Procedures Procedure Name Priority Date/Time Associated Diagnosis Comments CT LOWER EXTREMITY WITHOUT IV CONTRAST RIGHT Routine 12/10/2024 3:32 PM EDT Pain in right knee from Last 3 Months Results * CT lower extremity without IV [...] musculature is intact. Procedure Note Luis Eduardo uQreshi MD - 12/10/2024 CT RIGHT LOWER EXTREMITY [...] Womack MD IMG CT ORDERABLES Final Result from Last 3 Months
--- OUTSIDE RECORDS SUMMARY | 2025-02-09 10:50 | XMS_ITS | Encounter Summary ---
Author Organization [employer] ([place], [place], [place], [place]) Address [address] [place] [address] Care Team Providers Care Unscrambler Name Role Phone Unavailable Primary Care Provider Unavailabl e Encounter Details Date Type Department Care Team (Late st Contact Info) Description 11/10/2018 Transcribed Document [facility] [place] [facility] [address] [place] [address] ProviderJoe MD [address] [phone] Social History Tobacco Use Types Packs/Day Years Used Date Smoking Tobacco: Never Assessed Sex and Gender Information Value Date Recorded Sex Assigned at Male 01/23/2022 5:31 PM CDT Legal Sex Male 5:31 PM CDT Gender Identity Male 01/23/2022 5:31 PM CDT Sexual Orientation Not on file documented as of this encounter Miscellaneous Notes * Cerner Conversion Note - Historical ProviderMD - 11/10/2018 2:33 PM CDT ED Discharge Entered On: 11/10/2018 14:33 EDT Performed On: 11/10/2018 14:33 EDT by Graciela Campos RN Discharge Process Patient Disposition : Discharge Personal Belongings With Patient : Yes Patient Education Completed : Yes Teaching Evaluation : Verbalizes understanding IV Discontinued : Yes Nursing Documentation Completed : Yes Graciela Campos RN - 11/10/2018 14:33 EDT ED Discharge Discharge To : Home with ambulatory/outpatient follow-up Mode Of Departure : Ambulatory Accompanied By : Responsible adult Discharge Instructions Reviewed With, Opportunity For Questions Given : Patient Graciela Campos RN - 11/10/2018 14:33 EDT documented in this encounter Plan of Treatment Not on file documented as of this encounter Visit Diagnoses Not on filedocumented in this encounter
--- OUTSIDE RECORDS SUMMARY | 2025-02-09 10:50 | XMS_ITS | Encounter Summary ---
Author Organization [employer] ([place], [place], [place], [place]) Address [address] [place] [address] Care Team Providers Care Mine Boss Name Role Phone Unavailable Primary Care Provider Unavailabl e Encounter Details Date Type Department Care Team (Late st Contact Info) Description 11/10/2018 Transcribed Document [facility] [place] [address] [place] [address] ProviderJoe MD [address], [place] [phone] Social History Tobacco Use Types Packs/Day Years Used Date Smoking Tobacco: Never Assessed Sex and Gender Information Value Date Recorded Sex Assigned at Male 01/23/2022 5:31 PM CDT Legal Sex Male 5:31 PM CDT Gender Identity Male 01/23/2022 5:31 PM CDT Sexual Orientation Not on file documented as of this encounter Miscellaneous Notes * Cerner Conversion Note - Historical ProviderMD - 11/10/2018 2:11 PM CDT Electronically signed by [facility] Conversion Resin Mixer Cerner at 11/12/2022 10:26 AM CDT documented in this encounter Plan of Treatment Not on file documented as of this encounter Visit Diagnoses Not on filedocumented in this encounter
--- OUTSIDE RECORDS SUMMARY | 2025-02-09 10:50 | XMS_ITS | Encounter Summary ---
Author Organization [employer] ([place], [place], [place], [place]) Address [address] [place] [address] Care Team Providers Care Inbound Call Center Representative Name Role Phone Unavailable Primary Care Provider Unavailabl e Encounter Details Date Type Department Care Team (Late st Contact Info) Description 11/10/2018 Transcribed Document [facility] [place] Family Medicine [address] [place] [address] ProviderJoe MD [address] [id number] Social History Tobacco Use Types Packs/Day Years Used Date Smoking Tobacco: Never Assessed Sex and Gender Information Value Date Recorded Sex Assigned at Male 01/23/2022 5:31 PM CDT Legal Sex Male 5:31 PM CDT Gender Identity Male 01/23/2022 5:31 PM CDT Sexual Orientation Not on file documented as of this encounter Miscellaneous Notes * Cerner Conversion Note - Historical ProviderMD - 11/10/2018 4:29 PM CDT CR Chest 1 Vw Portable Ordered: 11/10/2018 Modified Reason for Exam: hiccups 11/10/2018 14:10 11/10/2018 16:29 (MIRNA SANCHES PA-FAM) Reviewed by Provider, No further action required 11/10/2018 16:29 (MIRNA SANCHES PA-FAM) Reviewed by Provider x1 documented in this encounter Plan of Treatment Not on file documented as of this encounter Visit Diagnoses Not on filedocumented in this encounter
--- OUTSIDE RECORDS SUMMARY | 2025-02-09 10:50 | XMS_ITS | Encounter Summary ---
Author Organization [employer] ([place], [place], [place], [place]) Address [address] [place] [address] Care Team Providers Care Explosive Ordnance Technician Name Role Phone Unavailable Primary Care Provider Unavailabl e Encounter Details Date Type Department Care Team (Late st Contact Info) Description 11/10/2018 Transcribed Document [facility] [place] Family Medicine formerly [facility] [place] [address] ProviderJoe MD [address] [place] [id number] Social History Tobacco Use Types Packs/Day Years [...] ProviderMD - 11/10/2018 10:55 AM CDT ED Triage Entered On: 11/10/2018 11:00 EDT Performed On: 11/10/2018 10:57 EDT by LATONYA MUÑIZ RN ED Triage Across the Room Triage Date/Time : 11/10/2018 10:57 EDT Chief Complaint : C/O CONTINUOUS HICCUPS SINCE SATURDAY, SENT PER DR COOMBS, HX GASTRIC BYPASS 2011 LATONYA MUÑIZ RN - 11/10/2018 10:57 EDT DCP GENERIC CODE Tracking Acuity : 3 - Urgent Tracking Group : [facility] [place] LATONYA MUÑIZ RN - 11/10/2018 10:57 EDT Mode of Arrival : Ambulatory Transported to ED by : Private vehicle To Room Via : Ambulate Accompanied By : Friend ED Vital Signs : Document Height & Weight : Document ED Allergies : Document ED Reason for Visit : Document Tetanus Immunization : Unknown LATONYA MUÑIZ RN - 11/10/2018 10:57 EDT Infectious Disease History Infectious Disease History : Chicken pox/Shingles, Influenza Fever/Chills Last 48 Hours : No Travel To Regions with Travel Advisories : No Travel Outside [place] Within Last 30 Days : No Contact With Traveler to Advisory Region : No Tuberculosis Symptoms : None LATONYA MUÑIZ RN - 11/10/2018 10:57 EDT Vital Signs ED Temperature Mode : Fahrenheit Temperature, Fahrenheit : 98.2 Deg F Clinical Temperature, C : 36.8 Deg C Peripheral Pulse Rate : 132 bpm (HI) Respiratory Rate : 18 Breaths/Min Systolic Blood Pressure : 153 mmHg (HI) Diastolic Blood Pressure : 97 mmHg (HI) Oxygen Saturation : 98 % LATONYA MUÑIZ RN - 11/10/2018 10:57 EDT Allergy (As Of: 11/10/2018 11:00:09 EDT) Allergies (Active) Adhesive Bandage Estimated Onset Date: Unspecified ; Reactions: Blisters ; Comments: Comment 1: surgical tape ; Created By: ALVIN GUERRA RPh; Reaction Status: Active ; Category: Other ; Substance: Adhesive Bandage ; Type: Allergy ; Updated By: ALVIN GUERRA RPh; Reviewed Date: 11/10/2018 10:59 EDT penicillin Estimated Onset Date: Unspecified ; Created By: CONTRIBUTORABDULLAHI CANCHOLA; Reaction Status: Active ; Category: Drug ; Substance: penicillin ; Type: Allergy ; Updated By: ABDULLAHI DALEY; Reviewed Date: 11/10/2018 10:59 EDT predniSONE Estimated Onset Date: Unspecified ; Reactions: O/E - sweating, O/E - sweating ; Created By: CONTRIBUTOR_ABDULLAHI LOVE; Reaction Status: Active ; Category: Drug ; Substance: predniSONE ; Type: Allergy ; Updated By: ABDULLAHI DALEY; Reviewed Date: 11/10/2018 10:59 EDT Diagnosis Control ED (As Of: 11/10/2018 11:00:09 EDT) Problems(Active) Anxiety (SNOMED CT :28753728 ) Name of Problem: Anxiety ; Recorder: MONSE STRICKLAND NP; Confirmation: Confirmed ; Classification: Medical ; Code: [id number] ; Contributor System: Roundrate ; Last Updated: 04/18/2017 10:22 EDT ; Life Cycle Date: 09/19/2016 ; Life Cycle Status: Active ; Vocabulary: SNOMED CT Arthritis/joint problems (SNOMED CT :9828333 ) Name of Problem: Arthritis/joint problems ; Recorder: LEE MERINO RN; Confirmation: Confirmed ; Classification: Medical ; Code: [id number] ; Contributor System: [employer] ; Last Updated: 01/11/2014 15:19 EDT ; Life Cycle Date: 08/04/2013 ; Life Cycle Status: Active ; Vocabulary: SNOMED CT asthma as child (SNOMED CT :519534941 ) Name of Problem: asthma as child ; Recorder: LEE MERINO RN; Confirmation: Confirmed ; Classification: Medical ; Code: [id number] ; Contributor System: PowerChart ; Last Updated: 04/19/2017 10:13 EDT ; Life Cycle Date: 08/04/2013 ; Life Cycle Status: Active ; Vocabulary: SNOMED CT Depression (SNOMED CT :09561629 ) Name of Problem: Depression ; Recorder: LEE MERINO RN; Confirmation: Confirmed ; Classification: Medical ; Code: [id number] ; Contributor System: PowerChart ; Last Updated: 01/11/2014 14:21 EDT ; Life Cycle Date: 08/04/2013 ; Life Cycle Status: Active ; Vocabulary: SNOMED CT Diabetes mellitus (SNOMED CT :413308666 ) Name of Problem: Diabetes mellitus ; Recorder: MONSE STRICKLAND NP; Confirmation: Confirmed ; Classification: Medical ; Code: [id number] ; Contributor System: PowerChart ; Last Updated: 09/19/2016 9:01 EST ; Life Cycle Date: 09/19/2016 ; Life Cycle Status: Active ; Vocabulary: SNOMED CT Diastolic dysfunction (SNOMED CT :3079108 ) Name of Problem: Diastolic dysfunction ; Recorder: LEE MERINO RN; Confirmation: Confirmed ; Classification: Medical ; Code: [id number] ; Contributor System: PowerChart ; Last Updated: 04/20/2017 10:33 EDT ; Life Cycle Date: 08/04/2013 ; Life Cycle Status: Active ; Vocabulary: SNOMED CT H/O gastric bypass (SNOMED CT :56269336 ) Name of Problem: H/O gastric bypass ; Recorder: ROSALINE DANIEL RN; Confirmation: Confirmed ; Classification: Medical ; Code: [id number] ; Contributor System: PowerChart ; Last Updated: 12/13/2013 22:45 EDT ; Life Cycle Date: 12/13/2013 ; Life Cycle Status: Active ; Vocabulary: SNOMED CT High cholesterol (SNOMED CT :90520078 ) Name of Problem: High cholesterol ; Recorder: LEE MERINO RN; Confirmation: Confirmed ; Classification: Medical ; Code: [id number] ; Contributor System: PowerChart ; Last Updated: 01/11/2014 14:21 EDT ; Life Cycle Date: 08/04/2013 ; Life Cycle Status: Active ; Vocabulary: SNOMED CT HTN (SNOMED CT :4790503934 ) Name of Problem: HTN ; Recorder: LEE MERINO RN; Confirmation: Confirmed ; Classification: Medical ; Code: [id number] ; Contributor System: PowerChart ; Last Updated: 01/11/2014 14:22 EDT ; Life Cycle Date: 08/04/2013 ; Life Cycle Status: Active ; Vocabulary: SNOMED CT Hyperlipidemia (SNOMED CT :51199708 ) Name of Problem: Hyperlipidemia ; Recorder: MONSE STRICKLAND NP; Confirmation: Confirmed ; Classification: Medical ; Code: 52015777 ; Contributor System: PowerChart ; Last Updated: 06/26/2017 13:38 EST ; Life Cycle Date: 09/19/2016 ; Life Cycle Status: Active ; Vocabulary: SNOMED CT Hypertension (SNOMED CT :07507642 ) Name of Problem: Hypertension ; Recorder: MONSE STRICKLAND NP; Confirmation: Confirmed ; Classification: Medical ; Code: 30881879 ; Contributor System: PowerChart ; Last Updated: 09/19/2016 9:01 EST ; Life Cycle Date: 09/19/2016 ; Life Cycle Status: Active ; Vocabulary: SNOMED CT Hypoglycemia (SNOMED CT :641277405 ) Name of Problem: Hypoglycemia ; Recorder: BALTAZAR GILBERT; Confirmation: Confirmed ; Classification: Medical ; Code: [id number] ; Contributor System: PowerChart ; Last Updated: 01/17/2015 11:06 EDT ; Life Cycle Date: 01/17/2015 ; Life Cycle Status: Active ; Vocabulary: SNOMED CT Parkinson's disease (SNOMED CT :6024387331 ) Name of Problem: Parkinson's disease ; Recorder: FIORDALIZA PRADO RN; Confirmation: Confirmed ; Classification: Medical ; Code: [id number] ; Contributor System: [employer] ; Last Updated: 07/31/2016 13:23 EST ; Life Cycle Date: 07/31/2016 ; Life Cycle Status: Active ; Vocabulary: SNOMED CT prostate problems (SNOMED CT :2350361162 ) Name of Problem: prostate problems ; Recorder: LEE MERINO RN; Confirmation: Confirmed ; Classification: Medical ; Code: [id number] ; Contributor System: [employer]rate ; Last Updated: 01/12/2014 11:16 EDT ; Life Cycle Date: 08/04/2013 ; Life Cycle Status: Active ; Vocabulary: SNOMED CT Thyroid disease (SNOMED CT :926228617 ) Name of Problem: Thyroid disease ; Recorder: MONSE STRICKLAND NP; Confirmation: Confirmed ; Classification: Medical ; Code: 056456780 ; Contributor System: [employer]rate ; Last Updated: 09/19/2016 9:01 EST ; Life Cycle Date: 09/19/2016 ; Life Cycle Status: Active ; Vocabulary: SNOMED CT Diagnoses(Active) Hiccups Date: 11/10/2018 ; Diagnosis Type: Reason For Visit ; Confirmation: Complaint of ; Clinical Dx: Hiccups ; Classification: Medical ; Clinical Service: Emergency medicine ; Code: PNED ; Probability: 0 ; Diagnosis Code: [id number] ED Height and Weight Height Source : Stated Height Entry Format : [place] Height, Feet : 6 ft(Converted to: 183 cm, 72 Inch) Height, Inches : 1 Inch(Converted to: 0 ft 1 Inch, 2.54 cm) Clinical Height : 185.42 cm Weight Source, ED : Standing scale Weight Entry Format : [place] Weight, Pounds : 234 lb Clinical Dosing Weight : 106.36 kg Body Surface Area (BSA) : 2.3 m2 Body Mass Index : 30.9 kg/m2 (HI) [place] Body Weight (IBW) : 78.88 kg LATONYA MUÑIZ RN - 11/10/2018 10:57 EDT Electronically signed by Hari Atkinson Conversion Business Administration Program Chair Cerner at 11/12/2022 10:29 AM CDT documented in this encounter Plan of Treatment Not on file documented as of this encounter Visit Diagnoses Not on filedocumented in this encounter
--- OUTSIDE RECORDS SUMMARY | 2025-02-09 10:51 | XMS_ITS | Encounter Summary ---
Author Organization [employer] ([place], [place], [place], [place]) Address [address] [place] [address] Care Team Providers Care Sales Exec Name Role Phone Unavailable Primary Care Provider Unavailabl e Encounter Details Date Type Department Care Team (Late st Contact Info) Description 11/10/2018 Transcribed Document [facility] Family Medicine [address] [place] [address] ProviderJoe MD [address] [place] [address] Social History Tobacco Use Types Packs/Day Years Used Date Smoking Tobacco: Never Assessed Sex and Gender Information Value Date Recorded Sex Assigned at Male 01/23/2022 5:31 PM CDT Legal Sex Male 5:31 PM CDT Gender Identity Male 01/23/2022 5:31 PM CDT Sexual Orientation Not on file documented as of this encounter Miscellaneous Notes * Cerner Conversion Note - Joe ProviderMD - 11/10/2018 2:17 [place] [address] CAT PRATER NATALIA :1975 Visit Time:11/10/2018 Your Visit Summary Your Care Team Admitting Physician - RUTH SHAH MD Attending Physician - RUTH SHAH MD Primary Care Physician - RAMIRO RANDOLPH (REF)MD Referring Physician - RICH, SELF REFERRED Your Diagnosis Alcohol use Constipation Hiccups Hx of gastric bypass Hypokalemia Intractable hiccups Patient Portal Reminder: Be sure to sign up for the [facility] patient portal, which gives you 24/ access to your medical information ??? including these discharge instructions ??? using your computer, smartphone, or tablet. Just go to [email or web address] to get started. Questions? Call . You may also obtain a copy of your Emergency Department visit from Medical Records by calling the hospital phone number listed above and asking to be directed to the Medical Records Department. If you had special tests, such as EKG???s or X-rays, the interpretation of your tests given to you by the Emergency Department Physician is a preliminary report. Some fractures and illnesses fail to show up on preliminary tests. These will be reviewed again and we will call you if there are any new suggestions. If your symptoms continue notify your physician. After you leave, you should follow the instructions provided. What to do next Follow-Up Appointments Follow Up with [facility] When Within 2 to 3 days Where: [address] [facility] [address]- Business (1) Follow Up with [facility] When Within 2 to 4 weeks Comments Call for follow up appointment Where: [facility] [address] [facility] [address] [place] [address]- Business (1) Follow Up with RAMIRO RANDOLPH When Within 2 to 3 days Comments Take medications as directed. Increase foods that are high in potassium. Drink plenty of water. Take MiraLAX qnwf-hgo-[id number] 1 capful with 8 ounces of liquid once a day until bowel movements have became regulated. If you with this to seek treatment for alcoholism he may call the [facility] return to the ER at any time. Make appointment see Dr. Early in the bariatric clinic within the next 2-3 weeks. Return to the ER if symptoms worsen or persist. Where: [address] [place] [address] [place] [address]- Business (1) Allergies Adhesive Bandage (Blisters) penicillin predniSONE (O/E - sweating, O/E - sweating) Immunizations This Visit No Immunizations Found Medications What How Much When Instructions Next Dose New metoclopramide (Reglan 10 mg oral tablet) 1 Tablet(s) Oral Four Times A Day Duration: 3 Day(s) Printed Prescription Unchanged albuterol (albuterol CFC free 90 mcg/ inh inhalation aerosol with adapter) 2 Puff(s) Inhalation Four Times A Day Unchanged aspirin (aspirin 81 mg oral tablet) Oral Every Day Unchanged cetirizine (cetirizine 10 mg oral tablet) Unchanged gabapentin (gabapentin 600 mg oral tablet) 1 Tablet(s) Oral Three Times A Day Unchanged nitroglycerin (Nitrostat) Unchanged rotigotine (Neupro) Topical Every Day The home medications listed are only as accurate as the information you provided. Please continue taking all of your medications prescribed by your Primary Care Provider unless specifically told to change or discontinue the medication. Please direct any questions regarding your home medications to your Primary Care Provider. Take your medications faithfully. Do NOT skip medication. Do NOT stop taking medications without the direction of a physician. Carry a list of your medications with you at all times, and take this medication list with you to your first follow up visit. Report any side effects. Avoid herbal remedies unless discussed with your physician. As part of your treatment plan, your physician may have prescribed a limited course of a controlled substance. This medication may be given to help people with moderate or severe pain or for other medical conditions, but there are risks involved with treatment. Common side effects may include nausea, constipation, drowsiness, sweating, itching, dry mouth, and rash. More serious side effects may include cognitive and motor impairment, like problems with thinking, concentrating, alertness, and movement (e.g. slowed reflexes), and driving and operating heavy machinery can be dangerous. It is important for you to talk to your physician if you have these side effects or questions. These controlled substances can produce physical dependence and be habit-forming if taken for an extended period of time, which means that the body has gotten used to them and may experience withdrawal symptoms if they are abruptly stopped. Withdrawal symptoms can include runny nose, sweating, goose bumps, diarrhea, abdominal cramping, rapid heartbeat, difficulty sleeping, and nervousness. Please dispose of unused and medications per pharmacy guidance. Test Results Laboratory or Other Results This Visit (last charted value for your 11/10/2018 visit) Hematology 11/10/18 11:45:00 WBC: 6.5 K/uL -- Normal range between ( 3.9 and 10.0 ) RBC: 4.13 Million/uL -- Normal range between ( 4.63 and 6.08 ) Hct: 36.1 % -- Normal range between ( 40.1 and 51.0 ) Hgb: 12.3 Gram/dL -- Normal range between ( 13.7 and 17.5 ) Platelet Count: 124 K/uL -- Normal range between ( 163 and 369 ) MCH: 29.8 pg -- Normal range between ( 25.6 and 32.2 ) MCHC: 34.1 Gram/dL -- Normal range between ( 32.3 and 36.5 ) MCV: 87.4 fL -- Normal range between ( 79.0 and 94.8 ) Slide Review: No Eos %: 2.0 % -- Normal range between ( 1.0 and 7.0 ) Republic #: 0.71 K/uL -- Normal range between ( 0.24 and 0.82 ) Eos #: 0.13 K/uL -- Normal range between ( 0.04 and 0.54 ) Republic %: 11.0 % -- Normal range between ( 4.7 and 12.5 ) Baso %: 1.1 % -- Normal range between ( 0.0 and 1.0 ) Baso #: 0.07 K/uL -- Normal range between ( 0.01 and 0.08 ) RDW: 21.2 % -- Normal range between ( 11.6 and 14.4 ) Neut %: 58.0 % -- Normal range between ( 34.0 and 71.0 ) Neut #: 3.76 K/uL -- Normal range between ( 1.56 and 6.13 ) Lymph %: 27.6 % -- Normal range between ( 19.3 and 53.0 ) Lymph #: 1.79 K/uL -- Normal range between ( 1.18 and 3.74 ) MPV: 11.1 fL -- Normal range between ( 9.4 and 12.4 ) IG#: 0 x10(3)/uL IG%: 0 % -- Normal range between ( 0 and 1 ) General Chemistry 11/10/18 11:45:00 Creatinine Level: 0.88 mg/dL -- Normal range between ( 0.70 and 1.30 ) Sodium Level: 143 mmol/L -- Normal range between ( 136 and 146 ) Potassium Level: 3.2 mmol/L -- Normal range between ( 3.5 and 5.1 ) Chloride Level: 103 mmol/L -- Normal range between ( 102 and 112 ) Carbon Dioxide Level: 28 mmol/L -- Normal range between ( 21 and 32 ) Anion Gap: 15 -- Normal range between ( 9 and 20 ) Bilirubin Total: 0.9 mg/dL -- Normal range between ( 0.2 and 1.3 ) A/G Ratio: 1.1 -- Normal range between ( 1.1 and 2.5 ) ALT: 202 Units/Liter -- Normal range between ( 12 and 78 ) AST: 273 Units/Liter -- Normal range between ( 5 and 37 ) Globulin: 3.5 Gram/dL -- Normal range between ( 1.5 and 4.5 ) Alk Phos: 108 Units/Liter -- Normal range between ( 27 and 136 ) Bun/Creatinine: 5.7 -- Normal range between ( 8.0 and 20.0 ) Calcium Level: 8.7 mg/dL -- Normal range between ( 8.5 and 10.1 ) eGFR : >60 mL/min/1.73m2 eGFR NonAfrican: >60 mL/min/1.73m2 Glucose Level: 131 mg/dL -- Normal range between ( 74 and 106 ) Blood Urea Nitrogen: 5 mg/dL -- Normal range between ( 7 and 22 ) Protein Total: 7.2 Gram/dL -- Normal range between ( 6.4 and 8.2 ) Albumin Level: 3.7 Gram/dL -- Normal range between ( 3.4 and 5.0 ) Computed Tomography 11/10/18 12:54:36 CT Abdomen Pelvis W: CT Abdomen Pelvis W Diagnostic Radiology 11/10/18 11:45:00 CR Chest 1 Vw Portable: CR Chest 1 Vw Portable Education Materials Hiccups Introduction A hiccup is the result of a sudden shortening of the muscle below your lungs (diaphragm). This movement of your diaphragm causes a sudden inhalation followed by the closing of your vocal cords, which causes the hiccup sound. Most people get the hiccups. Typically, hiccups last only a short amount of time. There are three types of hiccups: ??? Benign. These hiccups last less than 48 hours. ??? Persistent. These hiccups last more than 48 hours, but less than 1 month. ??? Intractable. These hiccups last more than 1 month. A hiccup is a reflex. You cannot control reflexes. Follow these instructions at home: Watch your hiccups for any changes. The following actions may help to lessen any discomfort that you are feeling: ??? Eat small meals. ??? Limit alcohol intake to no more than 1 drink per day for non women and 2 drinks per day for men. One drink equals 12 oz of beer, 5 oz of wine, or 1?? oz of hard liquor. ??? Limit drinking carbonated or fizzy drinks, such as soda. ??? Eat and chew your food slowly. ??? Avoid eating or drinking hot or spicy foods and drinks. ??? Take medicines only as directed by your health care provider. Contact a health care provider if: ??? Your hiccups last for more than 48 hours. ??? Your hiccups do not improve with treatment. ??? You cannot sleep or eat due to the hiccups. ??? You have unexpected weight loss due to the hiccups. ??? You have a fever. ??? You have trouble breathing or swallowing. ??? You develop severe pain in your abdomen. ??? You develop numbness, tingling, or weakness. This information is not intended to replace advice given to you by your health care provider. Make sure you discuss any questions you have with your health care provider. Document Released: 09/23/2002 Document Revised: 12/20/2016 Document Reviewed: 07/11/2015 ?? 2017 Elsevier Hypokalemia Hypokalemia means that the amount of potassium in the blood is lower than normal. Potassium is a chemical that helps regulate the amount of fluid in the body (electrolyte). It also stimulates muscle tightening (contraction) and helps nerves work properly. Normally, most of the body???s potassium is inside of cells, and only a very small amount is in the blood. Because the amount in the blood is so small, minor changes to potassium levels in the blood can be life-threatening. What are the causes? This condition may be caused by: ??? Antibiotic medicine. ??? Diarrhea or vomiting. Taking too much of a medicine that helps you have a bowel movement (laxative) can cause diarrhea and lead to hypokalemia. ??? Chronic kidney disease (CKD). ??? Medicines that help the body get rid of excess fluid (diuretics). ??? Eating disorders, such as bulimia. ??? Low magnesium levels in the body. ??? Sweating a lot. What are the signs or symptoms? Symptoms of this condition include: ??? Weakness. ??? Constipation. ??? Fatigue. ??? Muscle cramps. ??? Mental confusion. ??? Skipped heartbeats or irregular heartbeat (palpitations). ??? Tingling or numbness. How is this diagnosed? This condition is diagnosed with a blood test. How is this treated? Hypokalemia can be treated by taking potassium supplements by mouth or adjusting the medicines that you take. Treatment may also include eating more foods that contain a lot of potassium. If your potassium level is very low, you may need to get potassium through an IV tube in one of your veins and be monitored in the hospital. Follow these instructions at home: ??? Take [id number] and prescription medicines only as told by your health care provider. This includes vitamins and supplements. ??? Eat a healthy diet. A healthy diet includes fresh fruits and vegetables, whole grains, healthy fats, and lean proteins. ??? If instructed, eat more foods that contain a lot of potassium, such as: ? Nuts, such as peanuts and pistachios. ? Seeds, such as sunflower seeds and pumpkin seeds. ? Peas, lentils, and ruiz beans. ? Whole grain and bran cereals and breads. ? Fresh fruits and vegetables, such as apricots, avocado, bananas, cantaloupe, kiwi, oranges, tomatoes, asparagus, and potatoes. ? [place] juice. ? Tomato juice. ? Red meats. ? Yogurt. ??? Keep all follow-up visits as told by your health care provider. This is important. Contact a health care provider if: ??? You have weakness that gets worse. ??? You feel your heart pounding or racing. ??? You vomit. ??? You have diarrhea. ??? You have diabetes (diabetes mellitus) and you have trouble keeping your blood sugar (glucose) in your target range. Get help right away if: ??? You have chest pain. ??? You have shortness of breath. ??? You have vomiting or diarrhea that lasts for more than 2 days. ??? You faint. This information is not intended to replace advice given to you by your health care provider. Make sure you discuss any questions you have with your health care provider. Document Released: 07/15/2006 Document Revised: 03/02/2017 Document Reviewed: 03/02/2017 [employer] Patient Education ?? 2017 [employer] Constipation, Adult Constipation is when a person: ??? Poops (has a bowel movement) fewer times in a week than normal. ??? Has a hard time pooping. ??? Has poop that is dry, hard, or bigger than normal. Follow these instructions at home: Eating and drinking ??? Eat foods that have a lot of fiber, such as: ? Fresh fruits and vegetables. ? Whole grains. ? Beans. ??? Eat less of foods that are high in fat, low in fiber, or overly processed, such as: ? Cameroonian fries. ? Hamburgers. ? Cookies. ? Candy. ? Soda. ??? Drink enough fluid to keep your pee (urine) clear or pale yellow. General instructions ??? Exercise regularly or as told by your doctor. ??? Go to the restroom when you feel like you need to poop. Do not hold it in. ??? Take tdjp-gej-smwbjvz and prescription medicines only as told by your doctor. These include any fiber supplements. ??? Do pelvic floor retraining exercises, such as: ? Doing deep breathing while relaxing your lower belly (abdomen). ? Relaxing your pelvic floor while pooping. ??? Watch your condition for any changes. ??? Keep all follow-up visits as told by your doctor. This is important. Contact a doctor if: ??? You have pain that gets worse. ??? You have a fever. ??? You have not pooped for 4 days. ??? You throw up (vomit). ??? You are not hungry. ??? You lose weight. ??? You are bleeding from the anus. ??? You have thin, pencil-like poop (stool). Get help right away if: ??? You have a fever, and your symptoms suddenly get worse. ??? You leak poop or have blood in your poop. ??? Your belly feels hard or bigger than normal (is bloated). ??? You have very bad belly pain. ??? You feel dizzy or you faint. This information is not intended to replace advice given to you by your health care provider. Make sure you discuss any questions you have with your health care provider. Document Released: 12/31/2008 Document Revised: 02/01/2017 Document Reviewed: 01/02/2017 [employer] Interactive Patient Education ?? 2017 [employer]. Emergency Awareness and Preventative Care STROKE is an EMERGENCY Every Minute Counts Act FAST and Check for these signs: FACE Does the face look uneven? ARM Does one arm drift down? SPEECH Does their speech sound strange? TIME Call at any sign of stroke Stroke Risk Factors Atrial Fibrillation (irregular heartbeat) Diabetes Family history of stroke Heart Disease Heavy alcohol use High Blood Pressure High Cholesterol Physical inactivity and obesity Smoking Cigarette Smoking The facts are clear, cigarette smoking will shorten your life. Smoking can cause many illnesses along the way. As a healthcare provider, we recommend that you stop smoking. Assistance with quitting is available by contacting 4-614-ULII-NOW. This is a free resource providing counseling, support, and referral. Or you may contact your personal physician. National Suicide Prevention Lifeline: The National Suicide Prevention Lifeline is a national network of local crisis centers that provides free and confidential emotional support to people in suicidal crisis or emotional distress 24 hours a day, 7 days a week. Don't Wait! Stop a Heart Attack Before it Starts What is a heart attack? A heart attack is damage or to a part of the heart from severely decreased or lack of blood flow to the heart. Over time, arteries can become narrow from the buildup of fat and cholesterol, which is called plaque. The plaque can rupture causing a blood clot to form. When the blood clot forms, the artery can become severely narrowed or completely blocked, causing a heart attack. Heart attack is the leading cause of in the [place]. 85% of muscle damage occurs within the first 2 hours. Delay in the recognition of heart attack symptoms increases the chances of . Know the early symptoms of a heart attack: Nausea Feeling of fullness in chest Jaw Pain Pain that travels down one or both arms Fatigue/being tired Anxiety Back Pain Chest pressure, squeezing, or discomfort Shortness of breath Sweating, or a cold sweat Feeling of impending doom There are unusual signs of a heart attack, too! Women, the elderly, and diabetics may present with atypical symptoms: Fainting/dizziness Weakness Confusion Risk Factors for a Heart Attack Some heart disease risk factors, such as age and family history, cannot be changed. Others, like smoking and lack of exercise, can be changed. Smoking High Cholesterol High Blood Pressure Family History Obesity Age Gender (Males are at higher risk) Lack of Exercise Diabetes Diet Stress Excessive Alcohol Intake If you or someone you know is experiencing the signs and symptoms of a heart attack, DON???T DELAY. Call immediately and seek help. If someone collapses, perform CPR! Do not attempt to drive if you are having symptoms of heart attack. Hands-Only CPR Why Hands-Only CPR? Hands-Only CPR has been shown to be as effective as conventional CPR for cardiac arrests that occur outside of a hospital. Survival depends on immediately receiving CPR from someone nearby. How do you perform Hands-Only CPR? There are two easy steps: Call if you see a teen or adult collapse Push hard and fast in the center of the chest at a beat of 100 beats per minute. Save a life! 4 WAYS TO GET AHEAD OF SEPSIS SEPSIS is a MEDICAL EMERGENCY. Time matters! Infections put you and your family at risk for a life-threatening condition called sepsis. Sepsis is the body's extreme response to an infection. It is life-threatening, and without timely treatment, sepsis can rapidly lead to tissue damage, organ failure, and . Sepsis happens when an infection you already have-in your skin, lungs, urinary tract or somewhere else-triggers a chain reaction throughout your body. 1 PREVENT INFECTIONS Take good care of chronic conditions. Talk to your doctor about getting the recommended vaccines. 2 PRACTICE GOOD HYGIENE Wash your hands frequently. Keep cuts or open sores clean and covered until they are healed. 3 KNOW THE SYMPTOMS Confusion or disorientation Shortness of breath High heart rate Fever, shivering, or feeling very cold Extreme pain or discomfort Clammy or sweaty skin 4 ACT FAST Get medical care IMMEDIATELY if you suspect sepsis or if you have an infection that is not getting better or is getting worse. To learn more about sepsis and how to prevent infections, visit www.cdc.gov/sepsis. The examination and treatment you have received in the Emergency Department has been done to provide an appropriate evaluation and stabilizing treatment on an emergency basis only. Given the limited resources, it is not meant to be a substitute for complete medical care. The follow-up doctor you named will receive a copy of your records and all test reports. IT IS IMPORTANT THAT YOU SCHEDULE A FOLLOW-UP APPOINTMENT AND ARE RE-EVALUATED. You should report any new complaints, symptoms, or remaining problems at that time. IT IS IMPOSSIBLE FOR THE EMERGENCY DEPARTMENT TO RECOGNIZE AND TREAT ALL ELEMENTS OF INJURY OR ILLNESS IN A SINGLE VISIT. If you have been referred to a specialist physician, it means that we believe you may have a condition that requires the expertise of a specialist. These physicians work in partnership with the hospital and have agreed to see referred patients in their office for further evaluation. KEEP IN MIND THAT THE SPECIALIST HAS HIS/HER OWN OFFICE POLICIES WHICH MAY REQUIRE PROPER INSURANCE OR PAYMENT UP FRONT BEFORE THE SPECIALIST WILL SEE YOU. It is your responsibility to call the specialist physician to make an appointment. We do not have the ability to refer patients to specialists/physicians that work with specific insurance companies. Please be advised that all financial charges or billing practices are determined by that practice, not the hospital. If your insurance company requires that you see a specialist from their approved list, it is your responsibility to contact your insurance company to make those arrangements. It is also your responsibility to follow any other requirements of your insurance company necessary to obtain coverage for claims submitted. We will bill your insurance; however, you are responsible today for any co-pay amounts. You will receive a separate bill for any services you may have received including: emergency, radiology, or pathology physicians. Patient Name:PRATER CAT FISHER I have received this information and was given the opportunity to ask questions. Patient/Agency Cashier Name: Patient/Agency Cashier Signature: Relationship to Patient: Clinician/Hospital Agency Cashier Signature: Please Provide a Telephone Number Where You Can Be Reached: Is it Permissible To Leave a Message? Date: documented in this encounter Plan of Treatment Not on file documented as of this encounter Visit Diagnoses Not on filedocumented in this encounter
--- OUTSIDE RECORDS SUMMARY | 2025-02-09 10:51 | XMS_ITS | Clinical Summary ---
Author Organization [employer] ([place], [place], [place], [place]) Address [address] [place] [address] Care Team Providers Care Track Patrol Name Role Phone Unavailable Primary Care Provider Unavailabl e Encounters Date Type Department Care Team Description 12/10/2024 2:59 PM EDT - 12/10/2024 11:59 PM EDT Hospital Encounter [facility] [address] [place] [address] Ehsan Womack MD Pain in [...] Orientation Not on file Plan of Treatment Health Maintenance Due Date Last Done Comments CT Colonography 1974 Colonoscopy 1974 Colorectal Cancer Screening 1974 FOBT/FIT 1974 Fit-DNA (Cologuard) 1974 Sigmoidoscopy 1974 Depression Screening (12+) 1986 Tobacco Cessation Counseling and Screening (12+) 1986 HIV Screening 1989 Hepatitis C Screening 1992 Lipid Panel 2009 COVID-19 VACCINE (2023- season) 2024 Shingles Vaccine (Zoster) (1 of 2) 2024 Influenza Vaccine (#1) 2025 08/19/2020 DTAP/TDAP/TD VACCINES (2 - Td or Tdap) 10/15/2032 Pneumococcal 50+ years Completed 01/28/2024, 2006 Procedures Procedure Name Priority Date/Time Associated Diagnosis [...]
[2025-02-09 11:15] LABS: Hematocrit 44.5 % (42.0-52.0); Hemoglobin 15.0 g/dL (14.1-18.0); Immature Granulocytes % 0.4 %; Mean Corpuscular HGB Conc 33.7 g/dL (31.8-35.4); Mean Corpuscular Hemoglobin 32.8 pg (27.0-31.2); Mean Corpuscular Volume 97.4 fl (80-94); Nucleated Red Blood Cells % 0 %; Platelet Count 163 K/mm3 (142-424); Red Blood Count 4.57 M/mm3 (4.60-6.20); Red Cell Distribution Width-SD 51.7 fL; White Blood Count 7.7 K/mm3 (4.8-10.8)
[2025-02-09 11:37] LABS: Iron 123 ug/dL (49-181)
[2025-02-09 11:46] LABS: Total Iron Binding Capacity 295 ug/dL (261-462)
[2025-02-09 12:13] LABS: Ferritin 55.1 ng/ml (17.9-464)
== END 2025-02-09 23:59 | disposition home or self-care (01) ==
LOC: LAB 10:28
PROVIDERS: PCP Nurse Practitioner Family; Visit Provider Internal Medicine Medical Oncology
DX: K95.89 Other complications of other bariatric procedure (principal); D50.8 Other iron deficiency anemias
CPT/HCPCS: 36415; 82728; 83540; 83550; 85025